=== PATIENT | female | born 1990 | race Caucasian/White ===

== ENCOUNTER 2020-03-09 05:43 | Inpatient (IN) ==
[2020-03-09] MEDS ORDERED: CITRIC ACID/SODIUM CITRATE 15 ML UDC PO SCH (06:00)
[2020-03-09] MEDS ORDERED: CEFAZOLIN 2,000 MG in SYRINGE 0 ML IV SCH (06:00)
[2020-03-09] MEDS ORDERED: LACTATED RINGER'S 1,000 ML IV SCH (06:00)
[2020-03-09 06:23] LABS: Basophils # (auto) 0.01 K/uL (0-0.2); Basophils % (auto) 0.1 %; Eosinophils # (auto) 0.12 K/uL (0-0.5); Eosinophils % (auto) 1.5 %; Hematocrit (blood only) 33.2 % (37-47); Hemoglobin 10.9 g/dL (12.0-16.0); Immature Granulocytes # (auto) 0.04 K/uL (0.00-0.02); Immature Granulocytes % (auto) 0.5 %; Lymphocytes # (auto) 1.69 K/uL (1.2-3.4); Lymphocytes % (auto) 21.8 %; Mean Corpuscular Hemoglobin 30.7 pg (25-34); Mean Corpuscular Volume 93.5 fL (80-100); Mean Platelet Volume 10.3 fL (7.4-10.4); Monocytes # (auto) 0.57 K/uL (0.11-0.59); Monocytes % (auto) 7.4 %; Neutrophils # (auto) 5.32 K/uL (1.4-6.5); Neutrophils % (auto) 68.7 %; Platelet Count 208 K/uL (130-400); RDW Coefficient of Variation 14.2 % (11.5-14.5); RDW Standard Deviation 48.8 fL (36.4-46.3); Red Blood Count 3.55 M/uL (4.2-5.4); White Blood Count 7.75 K/uL (4.8-10.8)
[2020-03-09 06:28] LABS: Mean Corpuscular Hgb Conc 32.8 g/dL (32-36)
[2020-03-09] MEDS ORDERED: MoRPHine SULFATE PF 1 MG/ML 10 ML AMP/VIAL ONE (06:48)
[2020-03-09] MEDS ORDERED: fentaNYL citrate 100 MCG/2 ML VIAL ONE ×2 (06:48→21:42)
[2020-03-09] MEDS ORDERED: OXYTOCIN 10 UNITS/ML VIAL ONE (06:48)
[2020-03-09] MEDS ORDERED: NALOXONE HCL 0.08 MG in SYRINGE 1.8 ML IV PRN (07:05)
[2020-03-09] MEDS ORDERED: ONDANSETRON INJ 2 MG/ML 2 ML VIAL IV PRN ×2 (07:05→21:55)
[2020-03-09] MEDS ORDERED: MoRPHine SULFATE 2 MG/ML CARP IV PRN (07:05)
[2020-03-09] MEDS ORDERED: MoRPHine SULFATE PF 1 MG/ML 10 ML AMP/VIAL INT SPINAL ONE (07:05)
[2020-03-09] MEDS ORDERED: LACTATED RINGER'S 500 ML IV PRN (07:05)
[2020-03-09] MEDS ORDERED: KETOROLAC 30 MG/ML VIAL IV PRN (07:05)
[2020-03-09] MEDS ORDERED: NALOXONE HCL 0.4 MG/1 ML VIAL/CARP IV PRN ×2 (07:05→21:55)
[2020-03-09] MEDS ORDERED: NALOXONE HCL 1 MG in SODIUM CHLORIDE 0.9% 1000ML 1,000 ML IV PRN ×2 (07:05→21:55)
[2020-03-09] MEDS ORDERED: PROMETHAZINE HCL 25 MG in SODIUM CHLORIDE 0.9% 50 ML IV PRN ×2 (07:05→21:55)
[2020-03-09] MEDS ORDERED: ePHEDrine sulfate 50 MG/ML AMP IV PRN ×2 (07:05→21:55)
[2020-03-09] MEDS ORDERED: DiphenhydrAMINE HCL 50 MG/ML VIAL IV PRN ×2 (07:05→21:55)
--- NOTE | 2020-03-09 07:06 | Anesthesiology Consultation ---
Date of Service March 09, 2020 Assessment & Plan ASA ASA2 Proposed Anesthesia Anesthesia Type: Spinal Risk / Benefits Reviewed With: PT / POA / Parent / Guardian, Accepts Plan and Informed Consent Obtained History Surgery Operation Date: 03/09/20 07:30 Proposed Procedures p Section in LD - Osman Julian MD Height/Weight Height: 5 ft 10 in Weight: 93.894 kg Allergies Allergy/AdvReac Type Severity Reaction Status Date / Time ERYTHROMYCIN Allergy Unknown Unknown Uncoded 03/09/20 05:57 Medications Home Medications Medication Instructions Recorded Confirmed Last Taken vit no.061-axin-[id number] 1 tab PO DAILY 03/09/20 03/09/20 03/08/20 [ Vitamin] NPO Date Last Intake of Fluids: 03/08/20 Time Last Intake of Fluids: 23:00 Date Last Intake of Solids: 03/08/20 Time Last Intake of Solids: 18:00 Past Medical History Medical History Cardiac murmur HX OF CHILD GERD (gastroesophageal reflux disease) NO MEDS Migraine Exercise / Class Metabolic Activity II 4-5 Yardwork/Stairs/Walk up hill Past Family History Family History Grandfather (Paternal) Diabetes Past Surgical History Surgical History [place] teeth extracted Past Anesthesia History No Hx of Anesthesia Complications and No Family Hx of Anesthesia Complications History of PONV No Hx of PONV and No Hx of Motion Sickness Social History Smoking Status: Never smoker Do You Dip or Chew Tobacco: No Hx Alcohol Use: No Hx Substance Use: No substance use type: does not use Review of Systems denies fever/cough/ colds/ chest pain/ SOB/ ARABELLA Constitutional: no fever and no chills Respiratory: no cough and no dyspnea denies ARABELLA Cardiovascular: no chest pain and no dyspnea on exertion Physical Exam Vital Signs Last Vital Signs Temp 36.9 C 03/09/20 05:59 Pulse 100 H 03/09/20 05:48 Resp 18 03/09/20 05:59 BP 117/81 03/09/20 05:48 ENMT Mouth: no TMJ abnormality and no dentition abnormality Thyromental Distance: > or= 3.5 Finger Breadths Mallampati Class: II Neck neck extension not limited Respiratory normal respiratory effort; no respiratory distress Auscultation: lungs clear to auscultation bilaterally Cardiovascular Rate/Rhythm: regular rate and regular rhythm Neurologic moves all extremities Psychiatric Orientation: alert and oriented x 3 Testing Laboratory Results 03/09/20 06:06
[2020-03-09] MEDS ORDERED: SODIUM CHLORIDE 0.9% 1000ML 1,000 ML IV SCH (07:15)
[2020-03-09] MEDS ORDERED: NO NARCOTICS OR SEDATIVES SCH (07:15)
[2020-03-09] MEDS: LACTATED RINGER'S 1,000 ML IV PRN ×3 (07:30→21:51)
[2020-03-09] MEDS ORDERED: OXYTOCIN 30 UNITS/500 ML BAG IV PRN ×2 (08:36→10:06)
--- NOTE | 2020-03-09 08:36 | Obstetrical Progress Note ---
Date of Service March 09, 2020 Assessment & Plan Admission and Anticipated Discharge Date Admission Date: March 09, 2020 Subjective Pt was initially scheduled for c/sec due to breech fetus Sono this Am shows baby is cephalic C/sec is therefore cancelled Will start induction pt is agreeable VE; ft/thick /post Munguia bulb placed in cervix with 30 cc saline and starting Pitocin Results & Data ([facility]) Vital Signs (Past 12 Hours) Vital Signs Temp Pulse Resp BP 03/09/20 08:04 36.3 C L 81 20 111/72 03/09/20 05:59 36.9 C 18 03/09/20 05:48 100 H 117/81
[2020-03-09] MEDS ORDERED: Nursing to Pharmacy Communication SCH (09:15)
[2020-03-09] MEDS: BUTORPHANOL TARTRATE 1 MG/ML VIAL IV PRN ×2 (13:05→17:47)
[2020-03-09] MEDS ORDERED: BUPIVACAINE 0.25% 30 ML VIAL ONE (21:42)
[2020-03-09] MEDS ORDERED: ePHEDrine sulfate 50 MG/ML AMP ONE (21:42)
[2020-03-09] MEDS ORDERED: fentaNYL 2MCG/ML ROPIV 1.25MG/ML 100 ML BAG EPI ONE (21:43)
[2020-03-09] MEDS ORDERED: fentaNYL 2MCG/ML ROPIV 1.25MG/ML 100 ML BAG EPI PRN (21:55)
--- NOTE | 2020-03-09 23:07 | Obstetrical Progress Note ---
Date of Service March 09, 2020 Assessment & Plan Admission and Anticipated Discharge Date Admission Date: March 09, 2020 Subjective pt doing well Epidural analgesia in Place FHR; CAT1 Ctx 1-3 Pit; 20 MU VE; 4/50/-2 AROM- Clear IUPC Placed Results & Data ([facility]) Vital Signs (Past 12 Hours) Vital Signs Temp Pulse Resp BP Pulse Ox 03/09/20 23:00 79 135/80 90 03/09/20 22:59 79 99 03/09/20 22:54 68 129/74 95 03/09/20 22:49 70 126/74 96 03/09/20 22:46 70 133/78 03/09/20 22:44 91 H 96 03/09/20 22:40 71 18 128/77 94 03/09/20 22:39 73 95 03/09/20 22:35 18 03/09/20 22:34 74 131/80 96 03/09/20 22:32 76 126/79 94 03/09/20 22:30 78 18 127/81 03/09/20 22:29 79 96 03/09/20 22:28 71 122/78 03/09/20 22:25 66 15 127/78 03/09/20 22:24 80 92 03/09/20 22:23 81 201/80 H 03/09/20 22:20 76 137/89 03/09/20 22:19 82 98 03/09/20 22:14 91 H 100 03/09/20 22:11 101 H 92 03/09/20 22:09 80 99 03/09/20 22:04 70 99 03/09/20 22:00 18 03/09/20 21:59 74 97 03/09/20 21:30 71 18 126/74 03/09/20 21:00 18 03/09/20 20:29 69 139/83 03/09/20 19:30 65 18 123/72 03/09/20 19:08 36.7 C 03/09/20 18:30 66 120/73 03/09/20 17:29 72 20 125/81 03/09/20 16:30 69 18 112/70 03/09/20 15:29 36.8 C 73 20 121/74 03/09/20 14:41 65 116/75 03/09/20 14:05 20 03/09/20 13:40 82 20 118/59 L 03/09/20 11:34 36.4 C L 79 20 122/77
--- NOTE | 2020-03-09 23:17 | Obstetrical Progress Note ---
Date of Service March 09, 2020 Assessment & Plan Admission and Anticipated Discharge Date Admission Date: March 09, 2020 Subjective Pt doing well FHR; CAT! Ctx 1-3mins Pit; 20 MU VE; 2-3/50/-3 Pt unable to tolerate exam for AROM Plan D/C Pitocin for one hour Results & Data ([facility]) Vital Signs (Past 12 Hours) Vital Signs Temp Pulse Resp BP Pulse Ox 03/09/20 23:09 65 96 03/09/20 23:04 70 129/77 97 03/09/20 23:00 79 135/80 90 03/09/20 22:59 79 99 03/09/20 22:54 68 129/74 95 03/09/20 22:49 70 126/74 96 03/09/20 22:46 70 133/78 03/09/20 22:44 91 H 96 03/09/20 22:40 71 18 128/77 94 03/09/20 22:39 73 95 03/09/20 22:35 18 03/09/20 22:34 74 131/80 96 03/09/20 22:32 76 126/79 94 03/09/20 22:30 78 18 127/81 03/09/20 22:29 79 96 03/09/20 22:28 71 122/78 03/09/20 22:25 66 15 127/78 03/09/20 22:24 80 92 03/09/20 22:23 81 201/80 H 03/09/20 22:20 76 137/89 03/09/20 22:19 82 98 03/09/20 22:14 91 H 100 03/09/20 22:11 101 H 92 03/09/20 22:09 80 99 03/09/20 22:04 70 99 03/09/20 22:00 18 03/09/20 21:59 74 97 03/09/20 21:30 71 18 126/74 03/09/20 21:00 18 03/09/20 20:29 69 139/83 03/09/20 19:30 65 18 123/72 03/09/20 19:08 36.7 C 03/09/20 18:30 66 120/73 03/09/20 17:29 72 20 125/81 03/09/20 16:30 69 18 112/70 03/09/20 15:29 36.8 C 73 20 121/74 03/09/20 14:41 65 116/75 03/09/20 14:05 20 03/09/20 13:40 82 20 118/59 L 03/09/20 11:34 36.4 C L 79 20 122/77
--- NOTE | 2020-03-09 23:19 | Obstetrical Progress Note ---
Date of Service March 09, 2020 Assessment & Plan Admission and Anticipated Discharge Date Admission Date: March 09, 2020 Subjective Last progress written in error Results & Data ([place]) Vital Signs (Past 12 Hours) Vital Signs Temp Pulse Resp BP Pulse Ox 03/09/20 23:14 70 96 03/09/20 23:09 65 96 03/09/20 23:04 70 129/77 97 03/09/20 23:00 79 18 135/80 90 03/09/20 22:59 79 99 03/09/20 22:54 68 129/74 95 03/09/20 22:49 70 126/74 96 03/09/20 22:46 70 133/78 03/09/20 22:44 91 H 96 03/09/20 22:40 71 18 128/77 94 03/09/20 22:39 73 95 03/09/20 22:35 18 03/09/20 22:34 74 131/80 96 03/09/20 22:32 76 126/79 94 03/09/20 22:30 78 18 127/81 03/09/20 22:29 79 96 03/09/20 22:28 71 122/78 03/09/20 22:25 66 15 127/78 03/09/20 22:24 80 92 03/09/20 22:23 81 201/80 H 03/09/20 22:20 76 137/89 03/09/20 22:19 82 98 03/09/20 22:14 91 H 100 03/09/20 22:11 101 H 92 03/09/20 22:09 80 99 03/09/20 22:04 70 99 03/09/20 22:00 18 03/09/20 21:59 74 97 03/09/20 21:30 71 18 126/74 03/09/20 21:00 18 03/09/20 20:29 69 139/83 03/09/20 19:30 65 18 123/72 03/09/20 19:08 36.7 C 03/09/20 18:30 66 120/73 03/09/20 17:29 72 20 125/81 03/09/20 16:30 69 18 112/70 03/09/20 15:29 36.8 C 73 20 121/74 03/09/20 14:41 65 116/75 09/29/20 14:05 20 03/09/20 13:40 82 20 118/59 L 03/09/20 11:34 36.4 C L 79 20 122/77
[2020-03-10] MEDS ORDERED: DC INTRASPINAL MORPHINE SCH (01:05)
[2020-03-10] MEDS: LACTATED RINGER'S 1,000 ML IV PRN (01:39)
[2020-03-10] MEDS ORDERED: Nursing to Pharmacy Communication SCH (03:45)
[2020-03-10] MEDS ORDERED: METHYLERGONOVINE MALEATE 0.2 MG/ML AMP IM ONE (04:36)
[2020-03-10] MEDS ORDERED: miSOPROStoL 200 MCG TAB PR ONE (04:36)
[2020-03-10] MEDS ORDERED: DIPHTHERIA/TETANUS/PERTUSSIS 0.5 ML SYR/VIAL IM ONE (04:36)
[2020-03-10] MEDS ORDERED: SUPERCREAM 0.870% 15 GM JAR EXT PRN (04:36)
[2020-03-10] MEDS ORDERED: ACETAMINOPHEN 325 MG TAB PO PRN (04:36)
[2020-03-10] MEDS ORDERED: bisacodyL 10 MG SUPP PR PRN (04:36)
[2020-03-10] MEDS ORDERED: HYDROCORTISONE ACETATE 25 MG SUPP PR PRN (04:36)
[2020-03-10] MEDS ORDERED: OXYTOCIN 30 UNITS/500 ML BAG IV PRN (04:36)
[2020-03-10] MEDS ORDERED: BENZOCAINE 20% AER SPR 82.5 GM CAN EXT PRN (04:36)
[2020-03-10 04:48] LABS: Base Excess Cord Venous Blood -2.3 mEq/L (-7.7-1.9); Cord Venous Blood HCO3 23 mmol/L (18.4-26.8); Cord Venous Blood PCO2 40 mmHg (30.4-57.2); Cord Venous Blood PO2 31 mmHg (14.1-43.3); Cord Venous Blood pH 7.37 (7.20-7.44)
--- NOTE | 2020-03-10 05:46 | Anesthesia Procedure Note ---
Date of Service March 10, 2020 Anesthesia Post Epidural Note Vital Signs Vital Signs: Temp Pulse Resp BP Pulse Ox 36.8 C 80 18 147/91 H 95 03/10/20 03:05 03/10/20 05:40 03/10/20 05:20 03/10/20 05:35 03/10/20 05:40 Pain Intensity Bilateral Lower Abdomen: Pain Intensity: 3 Notes Mental Status: alert / awake / arousable and participated in evaluation Patient Amnestic to Procedure: Yes Nausea / Vomiting: adequately controlled Pain: adequately controlled Airway Patency, RR, SpO2: stable & adequate BP & HR: stable & adequate Hydration State: stable & adequate Anesthetic Complications: no major complications apparent and Pt Satisfied with anesthetic care
--- NOTE | 2020-03-10 06:32 | Delivery Summary ---
DATE OF OPERATION: 03/09/2020 DELIVERY NOTE The patient delivered a live in left occiput anterior presentation with nuchal cord which was easily reduced. This was followed by the body cord. was delivered, placed on mother's abdomen. Delayed cord clamp was performed after 1 minute. Cord blood was obtained. was handed to the waiting pediatric team. Weight is pending. Apgars 8 and 9. Placenta spontaneously delivered. Inspection of the placenta shows normal grossly looking placenta. Placenta sent to pathology for pathological analysis. Inspection of the perineum shows a second-degree midline laceration with a right labial tear. The second-degree laceration was repaired with 2-0 Vicryl in layers. Rectal exam post repair showed good sphincter tone, no sutures are palpated in the rectum. A right labial tear was repaired with 3-0 Vicryl. All instruments were removed from the vagina including retractors, sponges, needles accounted for x2. Baby and mother are doing well. I attest to the content of the Intraoperative Record and any orders documented therein. Any exception s are noted below.
[2020-03-10] MEDS: DOCUSATE SODIUM 100 MG CAP PO SCH ×2 (08:49→21:51)
[2020-03-10] MEDS: IBUPROFEN 600 MG TAB PO PRN ×3 (08:49→18:30)
[2020-03-10] MEDS: FERROUS SULFATE 325 MG TAB PO SCH (08:49)
[2020-03-10] MEDS: PRENATAL VITAMIN 1 TAB PO SCH (08:49)
[2020-03-11] MEDS: IBUPROFEN 600 MG TAB PO PRN ×3 (00:13→20:43)
[2020-03-11 06:36] LABS: Hematocrit (blood only) 33.3 % (37-47); Hemoglobin 11.1 g/dL (12.0-16.0); Mean Corpuscular Hemoglobin 30.7 pg (25-34); Mean Corpuscular Hgb Conc 33.3 g/dL (32-36); Mean Corpuscular Volume 92.2 fL (80-100); Mean Platelet Volume 10.5 fL (7.4-10.4); Platelet Count 205 K/uL (130-400); RDW Coefficient of Variation 14.4 % (11.5-14.5); RDW Standard Deviation 48.3 fL (36.4-46.3); Red Blood Count 3.61 M/uL (4.2-5.4); White Blood Count 15.13 K/uL (4.8-10.8)
[2020-03-11] MEDS: PRENATAL VITAMIN 1 TAB PO SCH (08:15)
[2020-03-11] MEDS: FERROUS SULFATE 325 MG TAB PO SCH (08:15)
[2020-03-11] MEDS: DOCUSATE SODIUM 100 MG CAP PO SCH ×2 (08:15→20:43)
--- NOTE | 2020-03-11 10:02 | Obstetrical Progress Note ---
Date of Service March 11, 2020 Assessment & Plan Admission and Anticipated Discharge Date Admission Date: March 09, 2020 Subjective PPD#1 doing well passing gas out of bed ambulating well Physical Exam Constitutional: WD/WN, vitals as above comfortable abdomen soft non-tender no edema neg Dayana's tent d/c in AM Results & Data ([facility]) Vital Signs (Past 12 Hours) Vital Signs Temp Pulse Pulse Resp BP BP Pulse Ox 03/11/20 08:15 36.3 C L 71 18 113/73 95 03/11/20 04:40 36.9 C 85 17 110/67 96 03/11/20 00:10 36.5 C 63 16 114/75 96 Laboratory Results Laboratory Results - last 72 hr 03/09/20 03/09/20 03/10/20 06:06 06:06 04:36 WBC 7.75 RBC 3.55 L Hgb 10.9 L Hct 33.2 L MCV 93.5 MCH 30.7 MCHC 32.8 RDW Std Deviation 48.8 H RDW Coeff of Shanna 14.2 Plt Count 208 MPV 10.3 Immature Gran % (Auto) 0.5 Neut % (Auto) 68.7 Lymph % (Auto) 21.8 [place] % (Auto) 7.4 Eos % (Auto) 1.5 Baso % (Auto) 0.1 Neut # (Auto) 5.32 Lymph # (Auto) 1.69 [place] # (Auto) 0.57 Eos # (Auto) 0.12 Baso # (Auto) 0.01 Immature Gran # (Auto) 0.04 H Cord VBG pH 7.37 Cord VBG pCO2 40 Cord VBG pO2 31 Cord VBG HCO3 23 Cord VBG Base Excess -2.3 Cord VBG O2 Sat 65.0 Blood Gas Comments [place] Blood Type AB Positive Antibody Screen NEGATIVE 03/11/20 06:10 WBC 15.13 H RBC 3.61 L Hgb 11.1 L Hct 33.3 L MCV 92.2 MCH 30.7 MCHC 33.3 RDW Std Deviation 48.3 H RDW Coeff of Shanna 14.4 Plt Count 205 MPV 10.5 H Immature Gran % (Auto) Neut % (Auto) Lymph % (Auto) [place] % (Auto) Eos % (Auto) Baso % (Auto) Neut # (Auto) Lymph # (Auto) [place] # (Auto) Eos # (Auto) Baso # (Auto) Immature Gran # (Auto) Cord VBG pH Cord VBG pCO2 Cord VBG pO2 Cord VBG HCO3 Cord VBG Base Excess Cord VBG O2 Sat Blood Gas Comments Blood Type Antibody Screen
[2020-03-11] MEDS ORDERED: bisacodyL 5 MG TABEC PO SCH (20:00)
[2020-03-12 06:50] LABS: Hematocrit (blood only) 32.9 % (37-47); Hemoglobin 10.8 g/dL (12.0-16.0)
[2020-03-12] MEDS: PRENATAL VITAMIN 1 TAB PO SCH (07:51)
[2020-03-12] MEDS: FERROUS SULFATE 325 MG TAB PO SCH (07:51)
[2020-03-12] MEDS: IBUPROFEN 600 MG TAB PO PRN (07:51)
[2020-03-12] MEDS: DOCUSATE SODIUM 100 MG CAP PO SCH (07:51)
--- NOTE | 2020-03-12 09:46 | Obstetrical Progress Note ---
Date of Service March 12, 2020 Assessment & Plan (1) Normal course: PPD #2 pt doing well d/c home with instructions Subjective Ambulation: ambulating normally Voiding: no voiding problems Passing Gas:: Yes Diet Tolerance:: regular diet Lochia:: Small Feeding Type:: breast feeding Review of Systems All systems reviewed & are unremarkable except as noted in HPI & below Physical Exam Constitutional WD/WN, vitals as above well developed and well nourished Eyes PERRL, conjunctivae normal, anicteric sclerae Neck trachea midline, no thyromegaly Respiratory normal respiratory effort, lungs clear to auscultation Auscultation: no crackles, no rales and no wheezes Cardiovascular RRR, no murmur, no edema Gastrointestinal (Abdomen) normal bowel sounds, soft, nontender, no hepatosplenomegaly Uterus is below umbilicus Musculoskeletal no cyanosis or clubbing, extremities motor strength 5/5 Skin no rashes, warm and dry Neurologic patellar DTR's 2+ bilat, sensation intact Psychiatric A+Ox3, euthymic affect Genitourinary normal external appearance Results & Data ([facility]) Vital Signs (Past 12 Hours) Vital Signs Temp Pulse Resp BP Pulse Ox 03/12/20 08:00 36.5 C 69 18 122/78 98 03/12/20 00:30 36.8 C 71 18 130/81
== END 2020-03-12 12:45 | disposition home or self-care (01) | DRG 807 ==
LOC: 4S1 05:43 → EDSTATUS 07:30 → 4S2 03-10 08:12

== ENCOUNTER 2023-10-31 09:33 | Inpatient (IN) ==
[2023-10-31] MEDS ORDERED: LIDOCAINE 1% LOCAL 20 ML VIAL INFIL PRN (10:12)
--- NOTE | 2023-10-31 10:17 | History & Physical Report ---
Date of Service October 31, 2023 Assessment & Plan (1) 40 weeks gestation of : Plan: Admit, routine labs Discussed with patient about ambulating, versus epidural and augmentation versus augmentation and then epidural if patient desires. Discussed with a category 2 tracing would recommend proceeding with delivery at this time with augmentation. She is agreeable to start oxytocin at this time and will get an epidural when she desires Plan for AROM after Anticipate spontaneous vaginal delivery (2) AMA (advanced maternal age) multigravida 35+: (3) Antepartum anemia complicating in third trimester: Plan: Admission H&H pending History of Present Illness Chief Complaint: Ctx Primary Care Provider: NO PCP Patient is a pleasant 33-year-old -0-1-1 at 40 weeks and 2 days dated by last menstrual period consistent with 9-week ultrasound who presents to labor and delivery for worsening contractions. States contractions woke her up at 3 AM but then became significantly more painful at 8 AM. Contractions are every 3 to 6 minutes. Denies leaking of fluid or vaginal bleeding. Notes good movement. Denies any blurry vision, right upper quadrant or epigastric pain. Had a headache earlier this morning. No other complaints at this time States she is too uncomfortable to go home at this time, patient currently lives in [place] Allergies Allergy/AdvReac Type Severity Reaction Status Date / Time erythromycin base Allergy Unknown Verified 10/31/23 09:52 Home Medications Medication Instructions Recorded Confirmed Type vits no.124-ferrous fum 1 tab PO DAILY 03/09/20 10/31/23 History 27 mg iron-folic acid 800 mcg tablet ( Vitamin) ferrous sulfate 325 mg (65 mg 65 mg PO BID 10/31/23 History iron) tablet,delayed release Patient History Medical History Normal course GERD (gastroesophageal reflux disease) NO MEDS Migraine Cardiac murmur HX OF CHILD Surgical History [place] teeth extracted Family History Grandfather (Paternal) Diabetes Social History Smoking Status: Never smoker Second Hand Exposure: Yes ( KID DAD SMOKED); Do You Dip or Chew Tobacco: No; Hx Alcohol Use: No Hx Substance Use: No Preferred Language: Grenadian Communication Ability: Effective Music Video Producer Required: No Beliefs That Will Affect Care: None marital status: Current Living Situation: Spouse Other Information That Helps Us Care for You: No Feels Safe at Home: Yes Safety Concerns: Feels Safe At This Time Assistive Devices: None OB History -0-1-1 History of x 1, no complications [employer] History See record Review of Systems All systems reviewed & are unremarkable except as noted in HPI & below Physical Exam Constitutional: WD/WN, vitals as above Respiratory: normal respiratory effort, lungs clear to auscultation Cardiovascular: RRR, no murmur, no edema Gastrointestinal (Abdomen): normal bowel sounds, soft, nontender, no hepatosplenomegaly gravid EFW 3500g Genitourinary: External genitalia: Normal Cervix: 3-4/50/-3, mid/soft Results & Data Vital Signs (Past 12 Hours) Vital Signs Temp Pulse Resp BP 10/31/23 09:52 36.4 C L 61 20 125/77 Monitoring External Monitor heart tracing: Baseline 155, moderate variability, no accelerations, variable decelerations, Tocodynamometer Contractions every 2 to 6 minutes (2) AMA (advanced maternal age) multigravida 35+ Trimester: third trimester Qualified Code(s): O09.523 - Supervision of elderly multigravida, third trimester
[2023-10-31] MEDS: LACTATED RINGER'S 1,000 ML IV PRN (10:24)
[2023-10-31 10:53] LABS: Hematocrit (blood only) 37.9 % (37.0-47.0); Hemoglobin 13.1 g/dl (12.0-16.0); Mean Corpuscular Hemoglobin 30.8 pg (25.0-34.0); Mean Corpuscular Hgb Conc 34.6 g/dL (32.0-36.0); Mean Corpuscular Volume 89.2 fL (80.0-100.0); Mean Platelet Volume 10.5 fL (9.4-12.4); Platelet Count 201 K/uL (130-400); RDW Coefficient of Variation 13.6 % (11.5-14.5); RDW Standard Deviation 44.5 fL (36.4-46.3); Red Blood Count 4.25 M/uL (4.20-5.40); White Blood Count 10.83 K/ul (4.8-10.8)
[2023-10-31] MEDS ORDERED: fentANYL 2 MCG/ML BUPIVacaine 0.125%-NSS 100ML BAG EPI PRN (11:04)
[2023-10-31] MEDS ORDERED: ROPIVACAINE 0.5% PF 5 MG/ML 20 ML VIAL EPI PRN (11:04)
[2023-10-31] MEDS ORDERED: NALOXONE HCL 1 MG in SODIUM CHLORIDE 0.9% 1,000 ML IV PRN (11:04)
[2023-10-31] MEDS ORDERED: NALOXONE HCL 0.4 MG/1 ML VIAL/CARP IV PRN (11:04)
[2023-10-31] MEDS ORDERED: diphenhydrAMINE 50 MG/ML VIAL IV PRN (11:04)
[2023-10-31] MEDS ORDERED: ePHEDrine sulfate 50 MG/ML AMP IV PRN (11:04)
[2023-10-31] MEDS ORDERED: fentaNYL citrate PF 100 MCG/2 ML VIAL EPI PRN (11:04)
[2023-10-31] MEDS ORDERED: LIDOCAINE 2% MPF LOCAL 5 ML VIAL EPI PRN (11:04)
[2023-10-31] MEDS ORDERED: NALBUPHINE HCL 5 MG in SYRINGE 0 ML IV PRN (11:04)
--- NOTE | 2023-10-31 11:04 | Anesthesiology Consultation ---
Date of Service October 31, 2023 Assessment & Plan (1) Encounter for pre-operative examination: Chart Review Chart Review: Patient NOT seen in Pre Admission Testing and Acceptable Risk for Labor Epidural Consults Requested none History Height/Weight Height: 5 ft 10 in Weight: 89.811 kg Allergies Allergy/AdvReac Type Severity Reaction Status Date / Time erythromycin base Allergy Unknown Verified 10/31/23 09:52 Medications Home Medications Medication Instructions Recorded Confirmed Last Taken vits no.124-ferrous fum 1 tab PO DAILY 03/09/20 10/31/23 10/30/23 08:00 27 mg iron-folic acid 800 mcg tablet ( Vitamin) ferrous sulfate 325 mg (65 mg 65 mg PO BID 10/31/23 10/30/23 21:00 iron) tablet,delayed release Active Medications Generic Name Dose Route Start Last Admin Trade Name Freq PRN Reason Stop Dose Admin Lactated Ringer's 1,000 mls @ 125 mls/hr 10/31/23 10:12 10/31/23 10:56 Lr IV 11/02/23 10:11 125 mls/hr .Q8H PRN Infusion L&D Protocol Protocol Past Medical History Medical History Normal course GERD (gastroesophageal reflux disease) NO MEDS Migraine Cardiac murmur HX OF CHILD Past Family History Family History Grandfather (Paternal) Diabetes Past Surgical History Surgical History [place] teeth extracted Social History Smoking Status: Never smoker Do You Dip or Chew Tobacco: No Hx Alcohol Use: No Hx Substance Use: No substance use type: does not use Physical Exam Vital Signs Last Vital Signs Temp 97.5 F L 10/31/23 09:52 Pulse 61 10/31/23 09:52 Resp 20 10/31/23 09:52 BP 125/77 10/31/23 09:52 Testing Laboratory Results 10/31/23 10:19
[2023-10-31] MEDS: LIDOCAINE 2%/EPINEPHRINE 1:200,000 20 ML PF ONE (11:23)
[2023-10-31] MEDS: BUPIVACAINE 0.25% PF 30 ML VIAL ONE (11:23)
[2023-10-31] MEDS: fentANYL 2 MCG/ML BUPIVacaine 0.125%-NSS 100ML BAG ONE (11:26)
[2023-10-31] MEDS: fentaNYL citrate PF 100 MCG/2 ML VIAL ONE (11:28)
[2023-10-31] MEDS: SODIUM CHLORIDE 0.9% PF INJ 10 ML VIAL ONE (11:28)
[2023-10-31] MEDS: SODIUM CHLORIDE 0.9% PF INJ 10 ML VIAL EPI PRN (12:05)
[2023-10-31] MEDS: BUPIVACAINE 0.25% PF 30 ML VIAL EPI PRN (12:05)
--- NOTE | 2023-10-31 12:10 | Anesthesia Procedure Note ---
Date of Service October 31, 2023 Anesthesia Epidural Re-Dose Vital Signs Temp Pulse Resp BP Pulse Ox 97.5 F L 69 20 126/84 99 10/31/23 11:30 10/31/23 12:07 10/31/23 12:00 10/31/23 12:07 10/31/23 12:04 Notes Pain Intensity: 8 Dilatation (cm): 3.5 Effacement (%): 50 Called by nursing to evaluate epidural as the patient is having increased pain on right side, patient with diminished sensation to cold on right, more significant on left side. Catheter withdrawn 1 cm and redosed The epidural was re-dosed with the following medications (all medications via epidural route) after negative aspiration of the epidural catheter for CSF/HEME. 0.125% Bupivacaine (8ml) After Epidural Re-Dose Mental Status: alert / awake / arousable Pain: improving with treatment Airway Patency, RR, SpO2: stable & adequate BP & HR: stable & adequate
[2023-10-31] MEDS: OXYTOCIN 30 UNITS/NSS 30 UNITS/500 ML BAG IV PRN ×2 (12:57→16:53)
[2023-10-31] MEDS ORDERED: bisacodyL 10 MG SUPP PR PRN (16:26)
[2023-10-31] MEDS ORDERED: OXYTOCIN 30 UNITS/NSS 30 UNITS/500 ML BAG IV PRN (16:26)
[2023-10-31] MEDS ORDERED: ACETAMINOPHEN 325 MG TAB PO PRN (16:26)
[2023-10-31] MEDS ORDERED: HYDROCORTISONE ACETATE 25 MG SUPP PR PRN (16:26)
[2023-10-31] MEDS ORDERED: BENZOCAINE 20% SPRY 85 APPLN/85 GM CAN EXT PRN (16:26)
--- NOTE | 2023-10-31 16:32 | Delivery Summary ---
Vaginal Delivery Summary Date of Service October 31, 2023 Vaginal Delivery Summary Patient is a pleasant 33-year-old -0-1-1 at 40 weeks and 2 days who presented for worsening contractions. On admission she was found to be 3 to 4 cm dilated with a category 2 tracing. Recommended admission even though she was not in active labor. Patient offered oxytocin for augmentation versus epidural followed by oxytocin. She received an epidural for pain control and oxytocin was started. She remained unchanged, and then was checked and found to be 5 cm. When I went into the room on the next check she is found to have a bulging bag that was ruptured and she was complete with moderate amount of meconium stained fluid. Patient then vomited and fetus head was at the introitus and I was called for delivery. During this time heart rate had decreased to the 70s for 4 minutes with good recovery. This was noted due to the rapid descent of the head. Delivery Summary: Patient was placed in the dorsal lithotomy position. She was prepped and draped in the usual sterile fashion. Upon maternal pushing the head was delivered atraumatically followed by the anterior shoulders, posterior shoulders then the remainder of the infants body. She pushed twice. The infant was immediately placed on mother's abdomen, dried and stimulated. Delayed cord clamping for 60 seconds was performed. The infants mouth and nose were bulb suctioned by nursing staff. A female was delivered at 1617, weight pending with APGARS of 8 at 1 minute and 9 at 5 minutes. The infant was handed off to the awaiting nursing staff. Cord blood gases were not obtained. The placenta delivered intact with three vessel cord at 1620. Placenta was sent to pathology. Thirty units of Pitocin were added to the IV fluid and allowed to run freely. Uterine massage was performed until uterus was deemed firm. Upon inspection of the perineum, vagina and cervix were intact. Upon re-inspection the patient was hemostatic. Uterus again massaged and found to be firm. Needle and sponge counts were correct. Patient was stable and allowed to recover in L&D room. Infant was stable and remained in room with mother in the labor and delivery unit. QBL 50mls
[2023-10-31] MEDS: ePHEDrine sulfate 50 MG/ML AMP ONE (16:59)
[2023-10-31] MEDS: BUPIVACAINE 0.25% PF 30 ML VIAL EPI STA (16:59)
[2023-10-31] MEDS: fentaNYL citrate PF 100 MCG/2 ML VIAL EPI STA (17:00)
[2023-10-31] MEDS: DIPHTHER/TETAN/PERTUS Vaccine (Tdap, Adol/Adult) 0.5mL IM ONE (17:00)
[2023-10-31] MEDS: SODIUM CHLORIDE 0.9% PF INJ 10 ML VIAL EPI STA (17:00)
[2023-10-31] MEDS: LIDOCAINE 2%/EPINEPHRINE 1:200,000 20 ML PF EPI STA (17:00)
--- NOTE | 2023-10-31 18:01 | Anesthesia Procedure Note ---
Date of Service October 31, 2023 Anesthesia Post Epidural Note Vital Signs Vital Signs: Temp Pulse Resp BP Pulse Ox 36.8 C 77 20 130/72 97 10/31/23 16:00 10/31/23 17:57 10/31/23 17:12 10/31/23 17:57 10/31/23 16:19 Pain Intensity Bilateral Abdomen: Pain Intensity: 0 Notes Mental Status: alert / awake / arousable and participated in evaluation Nausea / Vomiting: adequately controlled Pain: adequately controlled Airway Patency, RR, SpO2: stable & adequate BP & HR: stable & adequate Hydration State: stable & adequate Neuraxial Anesthesia: was administered and sensory block resolved Anesthetic Complications: no major complications apparent and Pt Satisfied with anesthetic care Epidural: Removed without complications and With tip intact
[2023-10-31] MEDS: IBUPROFEN 600 MG TAB PO PRN (21:09)
[2023-10-31] MEDS: DOCUSATE SODIUM 100 MG CAP PO SCH (21:09)
--- OUTSIDE RECORDS SUMMARY | 2023-11-01 05:43 | External Medical Summary | Summary of Care ---
Author Name Unknown Organization [facility] Address [address] [facility] [place] [address] Phone [phone] Care Team Providers Care Distillation Operator Name Role Phone Santa Goodson Primary Care Provider Reason for Visit * Reason Comments Non Stress Test Encounter Details Date Type Department Care Team (Late st Contact Info) Description 10/30/2023 1:00 PM EDT Office Visit Gynecology/Obstetric s [facility] [address] [facility] [place] [address] Marcie Almanzar CRNP [address] [place] [address] [place], Non Stress Tests [facility] [address] [place] [address] Decreased movements in third trimester, single or unspecified fetus*; Antepartum multigravida of advanced maternal age; Normal in third trimester; Antepartum anemia complicating ; NST (non-stress test) nonreactive Allergies No known active allergiesdocumented as of this encounter (statuses as of 10/30/2023) Medications Medication Sig Dispensed Refills Start Date End Date Status Albuterol Sulfate HFA 108 (90 Base) MCG/ACT Inhalation Aerosol SolutionIndications:A cute sinusitis, recurrence not specified, unspecified location Inhale by mouth 2 Puffs every 6 hours as needed for Wheezing. 18 g 04/03/2022 Active 28-0.8 MG Oral Tablet Take by mouth. Active Iron-Vitamin C 65-125 MG Oral Tablet (Vitron C)Indications:Antepar lizy anemia complicating Take 1 Tablet by mouth in the morning and 1 Tablet before bedtime. 60 Tablet 3 08/08/2023 Active Breast Pump Dispense double electric breast pump. Dx:Z39.1 1 Each 08/10/2023 Active documented as of this encounter (statuses as of 10/30/2023) Active Problems Problem Noted Date Diagnosed Date Antepartum anemia complicating 024 Overview: Rx iron 28 wks Normal 04/18/2023 Antepartum multigravida of advanced maternal age 1003/23/2023 H/O dysplastic nevus 12/30/2020 Overview: Moderate-focally severely atypical nevus (L pretibial region 10/30), mildly atypical nevus (L lateral distal leg) Gastroesophageal reflux disease without esophagi tis 11/17/2015 Migraine headache with aura 01/11/2012 Dysmenorrhea 07/25/2004 Estimated Date of Delivery Comme nts Yes 10/29/2023 Based on last me nstrual period of 01/22/2023 (Exact Date) documented as of this encounter (statuses as of 10/30/2023) Resolved Problems Problem Noted Date Diagnosed Date Resolved Date presentation, breech 02/24/2020 1 06/19/2019 Supervision of normal first 09/09/2019 03/17/2020 Overview: Influenza vaccine administered 09/09/2019 with no complications. Maida Caicedo LPN 12/29/2019 Tdap Vaccine administered per clinic protocol. Pt given VIS(vaccine information sheet) Anette Werner RN Varicella without complication 09/29/2004 03/12/2017 COMMON MIGRAINE WITHOUT MENT ION OF INTRACTABLE MIGRAINE 10/18/2001 03/12/2017 documented as of this encounter (statuses as of 10/30/2023) Immunizations Name Administration Dates Next Due HPV Vaccine, 4-Valent 10/24/2010 Seasonal Influenza, PF, 6 M & above, IM , (FluLaval or Fluzone) 03/02/2020,09/09/2019 TDAP (age 10 and older)(Boostrix) 08/07/2023, TDAP (age 11 and older)(Adacel) 10/24/2010 documented as of this encounter Social History Tobacco Use Types Packs/Day Years Used Date Smoking Tobacco: Never Smokeless Tobacco: Never Alcohol Use Standard Drinks/Week Comments Not Currently 1.7 (1 standard drink = 0.6 oz p ure alcohol) social PHQ-2 Answer Date Recorded PHQ Adult Total Score 0 08/23/2023 Hunger Vital Sign Answer Date Recorded Within the past 12 months, y ou worried that your food would run out before you got the money to buy more. Never true 06/13/19 24 Within the past 12 months, t he food you bought just didn't last and you didn't have money to get more. Never true 06/13/2023 [place] Depression Scale Answer Date Recorded [place] Depression Scale Total 3 10/04/2023 The thought of harming myself has occurred to me . Never 10/04/2023 Estimated Date of Delivery Comme nts Yes 10/29/2023 Based on last me nstrual period of 01/22/2023 (Exact Date) Sex and Gender Information Value Date Recorded Sex Assigned at Female 10/10/2021 11:54 AM EDT Gender Identity Female 10/10/2021 11:54 AM EDT Sexual Orientation Straight 10/10/2021 11 :54 AM EDT Job Start Date Occupation Industry Not on file Not on file Not on file documented as of this encounter Last Filed Vital Signs Vital Sign Reading Time Taken Comments Blood Pressure 112/64 10/30/2023 1:06 PM EDT Pulse - - Temperature - - Respiratory Rate - - Oxygen Saturation - - Inhaled Oxygen Concentration - - Weight 89.9 kg (198 lb 3.2 oz) 10/30/2023 1:06 P M EDT Height - - Body Mass Index 28.44 10/04/2023 9:11 AM EDT documented in this encounter Progress Notes * Marcie Almanzar CRNP - 10/30/2023 1:31 PM EDT 40w1d Here for acute visit. Called this morning with decreased FM, contractions 8-10 minutes apart. States the movement she has felt seems to be "sluggish" and much less than usual. NST today initially nonreactive, no accelerations noted. Pt ate a big breakfast, a late morning snack, and is snacking and drinking during NST. Contractions not noted on NST. Denies bleeding or LOF. While waiting for BPP availability, NST became reactive. Decision was made to complete BPP. ASSESSMENT assessment with Non-stress Test completed on 10/30/2023 at 40.1weeks gestation for indication of decreased FM heart baseline: 125 bpm Variability: Moderate Decelerations: absent Accelerations: absent Contractions: None NST start time: 1251 NST stop time: 1358 NST strip reviewed, interpreted, and approved by OB provider, LYNETTE Lawrence . NST strip stored in clinic storage file documented in this encounter Nursing Notes * Chastity Tirado MED ASSIST - 10/30/2023 1:23 PM EDT 40w1d Denies vaginal bleeding/rom Decreased movements + contractions Pt presents in office for NST due to decreased movements. documented in this encounter Plan of Treatment Pending Results Name Type Priority Associated Diagnoses Date /Time US BPP W/O NON-STRESS TEST Medical Imaging Routine Decreased movements in third trimester, single or unspecified fetus NST (non-stress test) nonreactive 10/30/2023 2:10 PM EDT Scheduled Orders Name Type Priority Associated Diagnoses Orde r Schedule US BPP W/O NON-STRESS TEST Medical Imaging Routine Decreased movements in third trimester, single or unspecified fetus NST (non-stress test) nonreactive Expected: 10/30/2023 (Approximate), Expires: 11/29/2024 Health Maintenance Due Date Last Done Comments GARDASIL-HPV IMMUNIZATION SERIES (3 - 3-dose series) 12/08/2013 09/15/2013 (Refused), 10/24/2010 COVID-19 Vaccine ( season) 2023 Influenza Vaccine (FLU shot) (Season Ended) 2024 03/02/2020, 09/09/2019, 04/18/2018 Diabetes Screening 05/31/2024 05/31/2021 Depression Screening 08/22/2024 08/23/2023 Pap Smear 03/23/2026 03/23/2023, 11/0 02/2020, 03/12/2017, Additional history exists Cervical Cancer Screening 03/23/2028 HPV/Co-Test 03/23/2028 03/23/2023 DTaP,Tdap,and Td Vaccines (10 - Td or Tdap) 08/07/2033 08/07/2023, 12/29/2019, 10/24/2010, Additional history exists Hepatitis B Completed 03/11/1998, 10/09, 08/25/1997 MENINGOCOCCAL (MENACTRA/MENVEO) Aged Out No longer eligible based on patient's age to complete this topic Pneumococcal Vaccine: Pediatrics (0 to 5 Years) and At-Risk Patients (6 to 64 Years) Aged Out No longer eligible based on patient's age to complete this topic documented as of this encounter Medical Devices Not on filedocumented as of this encounter Visit Diagnoses Diagnosis Decreased movements in third trimester, single or unspecified fetus- Primary Antepartum multigravida of advanced maternal age Normal in third trimester Antepartum anemia complicating Anemia, antepartum NST (non-stress test) nonreactive Abnormal findings on screening documented in this encounter Care Teams Distillation Operator Relationship Specialty Start Date End Date Santa Goodson DO [address] [place] [address] PCP - General Family Medicine 01/02/17 documented as of this encounter
--- OUTSIDE RECORDS SUMMARY | 2023-11-01 05:43 | External Medical Summary | Summary of Care ---
Author Name Unknown Organization [facility] Address [address] [facility] [place] [address] Phone [phone] Care Team Providers Care Skoog Machine Operator Name Role Phone Jess Goodsonforrest LewShantell Primary Care Provider Encounter Details Date Type Department Care Team (Late st Contact Info) Description 10/31/2023 Telephone Gynecology/Obstetrics, [address] [place] [address] Osman Julian MD [address] [place] [address] Allergies No known active allergiesdocumented as of this encounter (statuses as of 10/31/2023) Medications Medication Sig Dispensed Refills Start Date [...] as of this encounter (statuses as of 10/31/2023) Active Problems Problem Noted Date Diagnosed Date [...] as of this encounter (statuses as of 10/31/2023) Resolved Problems Problem Noted Date Diagnosed Date [...] as of this encounter (statuses as of 10/31/2023) Immunizations Name Administration Dates Next Due DT - Diptheria/Tetanus (PEDS) 11/25/1999 DTaP Dipth/Tet/Acell Pertussis (Infanrix), Peds 12/20/1993,05/13/1990,01/16/1989, 989,1988 HIB PRP-OMP, 3 dose (Pedvax) 03/14/1990 HPV Vaccine, 4-Valent 10/24/2010 Hepatitis B, 0-19 yrs 03/11/1998,10/26/1997,08/09 MMR - Measles/Mumps/Rubella Vaccine 09/06/1998,1 06/16/1989 OPV - Polio Virus Vaccine (Oral) 994,05/13/1990,1988, 989 Seasonal Influenza, PF, 6 M & above, [...] money to get more. Never true 06/13/2023 [place] Depression Scale Answer Date Recorded [place] Depression Scale Total 3 10/04/2023 The thought [...] on file documented as of this encounter Miscellaneous Notes * Telephone Encounter - Stephenie Rooney LPN - 10/31/2023 8:[address] Schuster notified and she was letting L&D know. * Telephone Encounter - Anastasiya Perez RN - 10/31/2023 8:34 AM EDT T/C from pt reporting UCs every 4 min for the last hour. Started at about 3am. Stopping her in her tracks. Pt audibly breathing through a UC while on the phone. Denies LOF or vaginal bleeding. Reports +FM. Pt states she is planning to head in to L&D. Please review with customer relations specialist provider. Candido's pt. documented in this encounter Plan of Treatment Health Maintenance Due Date Last Done Comments [...] Not on filedocumented as of this encounter Care Teams Skoog Machine Operator Relationship Specialty Start Date End Date Santa Goodson DO [address] [place] [address] PCP - General Family Medicine 01/02/17 documented as of this encounter
--- OUTSIDE RECORDS SUMMARY | 2023-11-01 05:43 | External Medical Summary | Summary of Care ---
Author Name Unknown Organization [facility] Address [address] [facility] [place] [address] Phone [phone] Care Team Providers Care Preschool Special Education Teacher Name Role Phone Santa Goodson Primary Care Provider Reason for Visit * Reason Onset Date Comments Advice 10/30/[address] Taurus arnett Encounter Details Date Type Department Care Team (Late st Contact Info) Description 10/30/2023 Telephone Gynecology/Obstetrics [facility] [address] [place] [address] Randell Sprague MD [address] [place] [address] Advice (Rev with DR Sprague.) Allergies No known active allergiesdocumented as of [...] money to get more. Never true 06/13/2023 [place] Depression Scale Answer Date Recorded [place] Depression Scale Total 3 10/04/2023 The thought [...] encounter Miscellaneous Notes * Telephone Encounter - Imani Valdovinos RN - 10/30/2023 11:34 AM EDT Pt is feeling baby move. She just feels it is slow moving. She has only felt the baby move 3-4 times since talking to us. Ctx are still every 8-10 min. Advised for NST for decreased movement. Pt to come over. * Telephone Encounter - Ana Cho LPN - 10/30/2023 10:35 AM EDT Phone call from pt. Pt reports contractions this morning 8-10 minutes apart for the last 2 hours. Lasting 30-45 seconds. Rating 6/10. Pt denies any LOF or vaginal bleeding/spotting. Drinking 40 oz of water so far today. Has not felt movement yet this morning. Discuss [facility]- pt will do these in the meantime. Pt currently 40 weeks 1 day gestation. IOL scheduled 11/05 [place] cruz pt. Please discuss with production engineer provider. Ana Cho LPN 10/30/2023 10:39 AM documented in this encounter Plan of Treatment Upcoming Encounters Date Type Department Care Team (Late st Contact Info) Description 10/30/2023 1:00 PM EDT Office Visit Gynecology/Obstetrics [facility] [address] [place] [address] Marcie Almanzar CRNP [address] [place] [address] Melanie Cruz Stress Tests [facility] [address] [place] [address] Health Maintenance Due Date Last Done Comments [...] filedocumented as of this encounter Care Teams Preschool Special Education Teacher Relationship Specialty Start Date End Date Santa Goodson DO [address] [place] [address] PCP - General Family Medicine 01/02/17 documented as of this encounter
--- OUTSIDE RECORDS SUMMARY | 2023-11-01 05:43 | External Medical Summary | Summary of Care ---
Author Name Unknown Organization [facility] Address [address] [facility] [place] [address] Phone [phone] Care Team Providers Care Pre Coder Name Role Phone Santa Goodson Primary Care Provider Reason for Visit * Reason Comments Return Visit Encounter Details Date Type Department Care Team (Late st Contact Info) Description 10/25/2023 9:15 AM EDT Office Visit Gynecology/Obstetric s [facility] [address] [place] [address] Joyce Batres CRNP [address] [place] [address] Normal in third trimester*; Antepartum multigravida of advanced maternal age; Antepartum anemia complicating Allergies No known active allergiesdocumented as of this encounter (statuses as of 10/25/2023) Medications Medication Sig Dispensed Refills Start Date End Date Status Albuterol Sulfate HFA 108 (90 Base) MCG/ACT Inhalation Aerosol SolutionIndications:A cute sinusitis, recurrence not specified, unspecified location Inhale by mouth 2 Puffs every 6 hours as needed for Wheezing. 18 g 0 04/03/2022 Active 28-0.8 MG Oral Tablet Take by mouth. 0 Active Iron-Vitamin C 65-125 MG Oral Tablet (Vitron C)Indications:Antepar lizy anemia complicating Take 1 Tablet by mouth in the morning and 1 Tablet before bedtime. 60 Tablet 3 08/08/2023 Active Breast Pump Dispense double electric breast pump. Dx:Z39.1 1 Each 0 08/10/2023 Active documented as of this encounter (statuses as of 10/25/2023) Active Problems Problem Noted Date Diagnosed Date [...] as of this encounter (statuses as of 10/25/2023) Resolved Problems Problem Noted Date Diagnosed Date [...] as of this encounter (statuses as of 10/25/2023) Immunizations Name Administration Dates Next Due HPV [...] money to get more. Never true 06/13/2023 [place] Depression Scale Answer Date Recorded [place] Depression Scale Total 3 10/04/2023 The thought [...] Sign Reading Time Taken Comments Blood Pressure 118/70 10/25/2023 9:01 AM EDT Pulse - - Temperature - - Respiratory Rate - - Oxygen Saturation - - Inhaled Oxygen Concentration - - Weight 89.4 kg (197 lb) 10/25/2023 9:01 AM EDT Height - - Body Mass Index 28.27 10/04/2023 9:11 AM EDT documented in this encounter Progress Notes * Joyce Batres CRNP - 10/25/2023 9:08 AM EDT 39w3d Baby moving well. Increase in ctx over the last few days. No leaking/bleeding. Interested in cervical exam - 1-2 cm. Fuel Pilot Engineer Documentation Provider requested grain mixer. Name of grain mixer: Nancy Lan dates induction scheduled. 1 week return LYNETTE Damian documented in this encounter Plan of Treatment Health Maintenance Due Date Last Done Comments GARDASIL-HPV IMMUNIZATION SERIES (3 - 3-dose series) 12/08/2013 09/15/2013 (Refused), 10/24/2010 COVID-19 Vaccine ( season) 2023 Influenza Vaccine (FLU shot) (Season Ended) 2024 03/02/2020, 09/09/2019, 04/18/2018 Diabetes Screening 05/31/2024 05/31/2021 Depression Screening 08/22/2024 08/23/2023 Pap Smear 03/23/2026 03/23/2023, 1102/2020, 03/12/2017, Additional history exists Cervical Cancer Screening [...] as of this encounter Visit Diagnoses Diagnosis Normal in third trimester- Primary Antepartum multigravida of advanced maternal age Antepartum anemia complicating Anemia, antepartum documented in this encounter Care Teams Pre Coder Relationship Specialty Start Date End Date Santa Goodson DO [address] [place] [address] PCP - General Family Medicine 01/02/17 documented as of this encounter
--- OUTSIDE RECORDS SUMMARY | 2023-11-01 05:43 | External Medical Summary | Summary of Care ---
Author Name Unknown Organization [facility] Address [address] [facility] [place] [address] Phone [phone] Care Team Providers Care Pricing/Signage Team Member Name Role Phone Jess Goodsonforrest LewShantell Primary Care Provider Encounter Details Date Type Department Care Team (Late st Contact Info) Description 10/31/2023 Telephone Gynecology/Obstetrics, [address] [place] [address] Osman Julian MD [address] [place] [address] Allergies No known active allergiesdocumented as of [...] money to get more. Never true 06/13/2023 [place] Depression Scale Answer Date Recorded [place] Depression Scale Total 3 10/04/2023 The thought [...] head in to L&D. Please review with diamond cutter provider. Candido's pt. documented in this encounter [...] filedocumented as of this encounter Care Teams Pricing/Signage Team Member Relationship Specialty Start Date End Date Santa Goodson DO [address] [place] [address] PCP - General Family Medicine 01/02/17 documented as of this encounter
--- OUTSIDE RECORDS SUMMARY | 2023-11-01 05:44 | External Medical Summary | Summary of Care ---
Author Name Unknown Organization [facility] Address [address] [facility] [place] [address] Phone [phone] Care Team Providers Care Door To Door Selling Agent Name Role Phone Santa Goodson Primary Care Provider Reason for Visit * Reason Comments Return Visit Encounter Details Date Type Department Care Team (Late st Contact Info) Description 10/18/2023 9:15 AM EDT Office Visit Gynecology/Obstetric s [facility] [address] [place] [address] Joyce Batres CRNP [address] [facility] [place] [address] Normal in third trimester*; Antepartum multigravida of advanced maternal age; Antepartum anemia complicating Allergies No known active allergiesdocumented as of this encounter (statuses as of 10/18/2023) Medications Medication Sig Dispensed Refills Start Date [...] as of this encounter (statuses as of 10/18/2023) Active Problems Problem Noted Date Diagnosed Date [...] as of this encounter (statuses as of 10/18/2023) Resolved Problems Problem Noted Date Diagnosed Date [...] as of this encounter (statuses as of 10/18/2023) Immunizations Name Administration Dates Next Due HPV [...] money to get more. Never true 06/13/2023 [place] Depression Scale Answer Date Recorded [place] Depression Scale Total 3 10/04/2023 The thought [...] Sign Reading Time Taken Comments Blood Pressure 110/70 10/18/2023 8:45 AM EDT Pulse - - Temperature - - Respiratory Rate - - Oxygen Saturation - - Inhaled Oxygen Concentration - - Weight 88.5 kg (195 lb) 10/18/2023 8:45 AM EDT Height - - Body Mass Index 27.98 10/04/2023 9:11 AM EDT documented in this encounter Progress Notes * Joyce Batres CRNP - 10/18/2023 8:58 AM EDT 38w3d Baby is moving well. Some cramping, no regular ctx. No bleeding/LOF. Reviewed labor signs and FKC. Discussed induction if not delivered at 41+ weeks. 1 week return LYNETTE Damian documented in this encounter Plan of Treatment Upcoming Encounters Date Type Department Care Team (Late st Contact Info) Description 10/25/2023 9:15 AM EDT Office Visit Gynecology/Obstetrics [facility] [address] [place] [address] BackJoyce ritter CRNP [address] [place] [address] Health Maintenance Due Date Last Done Comments [...] antepartum documented in this encounter Care Teams Door To Door Selling Agent Relationship Specialty Start Date End Date Santa Goosdon DO [address] [place] [address] PCP - General Family Medicine 01/02/17 documented as of this encounter
--- OUTSIDE RECORDS SUMMARY | 2023-11-01 05:44 | External Medical Summary | Summary of Care ---
Author Name Unknown Organization [facility] Address [address] [facility] [place] [address] Phone [phone] Care Team Providers Care Director Of Cardiac Cath Lab Name Role Phone Santa Goodson Primary Care Provider Reason for Visit * Reason Comments Return Visit Encounter Details Date Type Department Care Team (Late st Contact Info) Description 09/20/2023 9:15 AM EDT Office Visit Gynecology/Obstetric s [facility] [address] [place] [address] Joyce Batres CRNP [address] [place] [address] Normal in third trimester*; Antepartum multigravida of advanced maternal age; Antepartum anemia complicating Allergies No known active allergiesdocumented as of this encounter (statuses as of 09/20/2023) Medications Medication Sig Dispensed Refills Start Date [...] as of this encounter (statuses as of 09/20/2023) Active Problems Problem Noted Date Diagnosed Date [...] as of this encounter (statuses as of 09/20/2023) Resolved Problems Problem Noted Date Diagnosed Date [...] as of this encounter (statuses as of 09/20/2023) Immunizations Name Administration Dates Next Due HPV [...] money to get more. Never true 06/13/2023 [place] Depression Scale Answer Date Recorded [place] Depression Scale Total 7 08/23/2023 The thought of harming myself has occurred to me . Never 08/23/2023 Estimated Date of Delivery Comme nts Yes [...] Sign Reading Time Taken Comments Blood Pressure 110/64 09/20/2023 8:59 AM EDT Pulse - - Temperature - - Respiratory Rate - - Oxygen Saturation - - Inhaled Oxygen Concentration - - Weight 87.5 kg (193 lb) 09/20/2023 8:59 AM EDT Height - - Body Mass Index 27.69 09/06/2023 10:57 AM EDT documented in this encounter Progress Notes * Nancy Ivy LPN - 09/20/2023 8:58 AM EDT 34w3d Denies vaginal bleeding/rom + movement No new concerns Labor instructions given today * Joyce Batres CRNP - 09/20/2023 8:58 AM EDT 34w3d Good movement. No leaking, bleeding, regular ctx. No thoughts on control yet, not sure if done childbearing. Labor instructions provided. Reviewed FKC. Discussed GBS swab to be completed at next visit. 2 week return LYNETTE Damian documented in this encounter Plan of Treatment Upcoming Encounters Date Type Department Care Team (Late st Contact Info) Description 10/04/2023 9:15 AM EDT Office Visit Gynecology/Obstetrics [facility] [address] [place] [address] Tanisha Trinh PA-C [address] [place], [place] [address] [address] 10/11/2023 9:15 AM EDT Office Visit Gynecology/Obstetrics [facility] [address] [place] [address] Joyce Batres CRNP [address] [place] [address] 10/17/2023 10:20 AM EDT Office Visit Dermatology [address] [place] [address] Tanisha Harris PA-C [address] [place] [address] [place] [address] 10/18/2023 9:15 AM EDT Office Visit Gynecology/Obstetrics [facility] [address] [place] [address] Joyce Batres CRNP [address] [place] [address] 10/25/2023 9:15 AM EDT Office Visit Gynecology/Obstetrics [facility] [address] [place] [address] Joyce Batres CRNP [address] [place] [address] Health Maintenance Due Date Last Done Comments GARDASIL-HPV IMMUNIZATION SERIES (3 - 3-dose series) 12/08/2013 09/15/2013 (Refused), 10/24/2010 COVID-19 Vaccine ( season) 2023 Influenza Vaccine (FLU shot) (Season Ended) 2024 03/02/2020, 09/09/2019, 04/18/2018 Diabetes Screening 05/31/2024 05/31/2021 Depression Screening 08/22/2024 08/23/2023 Pap Smear 03/23/2026 03/23/2023, 02/2020, 03/12/2017, Additional history exists Cervical Cancer [...] antepartum documented in this encounter Care Teams Director Of Cardiac Cath Lab Relationship Specialty Start Date End Date Santa Goodson DO [address] [place] [address] PCP - General Family Medicine 01/02/17 documented as of this encounter
--- OUTSIDE RECORDS SUMMARY | 2023-11-01 05:44 | External Medical Summary | Summary of Care ---
Author Name Unknown Organization [facility] Address [address] [facility] [place] [address] Phone [phone] Care Team Providers Care Founder And President Name Role Phone Santa Goodson Primary Care Provider Reason for Visit * Reason Comments Return Visit Encounter Details Date Type Department Care Team (Late st Contact Info) Description 10/04/2023 9:15 AM EDT Office Visit Gynecology/Obstetric s [facility] [address] [facility] [place] [address] Tanisha Trinh PA-C [address] [facility] [place] [address] Normal in third trimester*; Antepartum anemia complicating ; Antepartum multigravida of advanced maternal age Allergies No known active allergiesdocumented as of this encounter (statuses as of 10/04/2023) Medications Medication Sig Dispensed Refills Start Date [...] as of this encounter (statuses as of 10/04/2023) Active Problems Problem Noted Date Diagnosed Date [...] as of this encounter (statuses as of 10/04/2023) Resolved Problems Problem Noted Date Diagnosed Date [...] as of this encounter (statuses as of 10/04/2023) Immunizations Name Administration Dates Next Due HPV [...] money to buy more. Never true 06/13/19 Within the past 12 months, t he food you bought just didn't last and you didn't have money to get more. Never true 06/13/2023 [place] Depression Scale Answer Date Recorded [place] Depression Scale Total 3 10/04/2023 The thought [...] Sign Reading Time Taken Comments Blood Pressure 116/72 10/04/2023 9:11 AM EDT Pulse - - Temperature - - Respiratory Rate - - Oxygen Saturation - - Inhaled Oxygen Concentration - - Weight 88 kg (194 lb) 10/04/2023 9:11 AM EDT Height 177.8 cm (5' 10") 10/04/2023 9:11 AM EDT Body Mass Index 27.84 10/04/2023 9:11 AM EDT documented in this encounter Progress Notes * Tainsha Trinh PA-C - 10/04/2023 9:24 AM EDT Massiel Luna is a 33 year old female here for her routine OB appointment at 36w3d Her Estimated Date of Delivery: 10/29/23 REVIEW OF SYSTEMS She affirms movement. Denies vaginal bleeding, LOF, contractions, N/V, new/worsening headaches, vision changes, chest pain, deep calf pain/swelling, RUQ pain. Od[place] Depression Scale Od[place] Depression Scale Total: 3 [place] suicide question and score: Score of 3 = Yes, quite often. Score of 2 = Sometimes. Score of 1 = Hardly ever The thought of harming myself has occurred to me: 0 PHYSICAL EXAM Filed Vitals: 10/04/23 0911 BP: 116/72 Weight: 88 kg (194 lb) Height: 1.778 m (5' 10") +FHT 150s Fundal height 36 cm GBS swab collected. Director Video Documentation Patient offered environment coordinator and accepted. Name of environment coordinator: Niesha Vazquez LPN. ASSESSMENT/PLAN Antepartum multigravida of advanced maternal age (Primary) Normal Antepartum anemia complicating - Patient taking PO iron BID. Supervision of - GBS swab collected today - labor precautions and kick counts reviewed RTO in 1 week Tanisha Trinh PA-C 10/04/2023 documented in this encounter Plan of Treatment Upcoming Encounters Date Type Department Care Team (Late st Contact Info) Description 10/11/2023 9:15 AM EDT Office Visit Gynecology/Obstetrics [facility] [address] [place] [address] Joyce Batres CRNP [address] [place] [address] 10/17/2023 10:20 AM EDT Office Visit Dermatology [address] [place] [address] Tanisha Harris PA-C [address] [place] [address] [place] [address] 10/18/2023 9:15 AM EDT Office Visit Gynecology/Obstetrics [facility] [address] [place] [address] Joyce Batres CRNP [address] [place] [address] 10/25/2023 9:15 AM EDT Office Visit Gynecology/Obstetrics [facility] [address] [place] [address] Joyce Batres CRNP [address] [place] [address] Pending Results Name Type Priority Associated Diagnoses Date /Time GROUP B STREP CULTURE/PCR Lab Routine Normal in third trimester 10/04/2023 9:45 AM EDT Health Maintenance Due Date Last Done Comments GARDASIL-HPV IMMUNIZATION SERIES (3 - 3-dose series) 12/08/2013 09/15/2013 (Refused), 10/24/2010 COVID-19 Vaccine ( season) 2023 Influenza Vaccine (FLU shot) (Season Ended) 2024 03/02/2020, 09/09/2019, 04/18/2018 Diabetes Screening 05/31/2024 05/31/2021 Depression Screening 08/22/2024 08/23/2023 Pap Smear 03/23/2026 03/23/2023, 11/02/2020, 03/12/2017, Additional history exists Cervical Cancer Screening [...] Diagnosis Normal in third trimester- Primary Antepartum anemia complicating Anemia, antepartum Antepartum multigravida of advanced maternal age documented in this encounter Care Teams Founder And President Relationship Specialty Start Date End Date Santa Goodson DO [address] [place] [address] PCP - General Family Medicine 01/02/17 documented as of this encounter
--- OUTSIDE RECORDS SUMMARY | 2023-11-01 05:44 | External Medical Summary | Summary of Care ---
Author Name Unknown Organization [facility] Address [address] [facility] [address] Phone [phone] Care Team Providers Care Upholstery Estimator Name Role Phone Santa Goodson Primary Care Provider Reason for Visit * Reason Comments Return Visit Encounter Details Date Type Department Care Team (Late st Contact Info) Description 10/11/2023 9:15 AM EDT Office Visit Gynecology/Obstetric s [facility] [address] [place] [address] Joyce Batres CRNP [address] [place] [address] Normal in third trimester*; Antepartum multigravida of advanced maternal age; Antepartum anemia complicating Allergies No known active allergiesdocumented as of this encounter (statuses as of 10/11/2023) Medications Medication Sig Dispensed Refills Start Date [...] as of this encounter (statuses as of 10/11/2023) Active Problems Problem Noted Date Diagnosed Date [...] as of this encounter (statuses as of 10/11/2023) Resolved Problems Problem Noted Date Diagnosed Date [...] as of this encounter (statuses as of 10/11/2023) Immunizations Name Administration Dates Next Due HPV [...] money to get more. Never true 06/13/2023 [place] Depression Scale Answer Date Recorded [place] Depression Scale Total 3 10/04/2023 The thought [...] Reading Time Taken Comments Blood Pressure 112/64 10/11/2023 9:01 AM EDT Pulse - - Temperature - - Respiratory Rate - - Oxygen Saturation - - Inhaled Oxygen Concentration - - Weight 88 kg (194 lb) 10/11/2023 9:01 AM EDT Height - - Body Mass Index 27.84 10/04/2023 9:11 AM EDT documented in this encounter Progress Notes * Joyce Batres CRNP - 10/11/2023 9:11 AM EDT 37w3d Baby is moving well. Some BH ctx last week, nothing regular. No bleeding/leaking. Aware of neg GBS.Return in 1 week. LYNETTE Damian * Nancy Ivy LPN - 10/11/2023 9:01 AM EDT 37w3d Denies vaginal bleeding/rom + movement No new concerns documented in this encounter Plan of Treatment Upcoming Encounters Date Type Department Care Team (Late st Contact Info) Description 10/18/2023 9:15 AM EDT Office Visit Gynecology/Obstetrics [facility] [address] [place] [address] Joyce Batres CRNP [address] [place] [address] 10/25/2023 9:15 AM EDT Office Visit Gynecology/Obstetrics [facility] [address] [place] [address] Joyce Batres CRNP [address] [place] [address] Health Maintenance Due Date Last Done Comments [...] antepartum documented in this encounter Care Teams Upholstery Estimator Relationship Specialty Start Date End Date Santa Goodson DO [address] [place] [address] PCP - General Family Medicine 01/02/17 documented as of this encounter
--- OUTSIDE RECORDS SUMMARY | 2023-11-01 05:44 | External Medical Summary ---
Author Name Unknown Address Unknown Organization K01:[facility] [place] [address] [facility] [address] Laboratory Report Ordering Provider Test Date Status FREDDYSARAY 10/04/2023 09:45:58 Final Observation Date Value Abnormality Reference (Units ) Status Streptococcus agalactiae DNA [Presence] in Specimen by ADRIANNA with probe detection 10/04/2023 09:45:58 Negative Negative Final No Group B Streptococcus det ected by culture-enhanced PCR (amplified probe).
The collection of vaginal/rectal swab specimen combinations (FDA approved specimen type) is optimal for the detection of Group B Streptococcus. Single source collection (vaginal only or rectal only) or alternate specimen sources may lead to false negative results. Performing Location [facility] [place] [address] [facility] [address]
--- OUTSIDE RECORDS SUMMARY | 2023-11-01 05:44 | External Medical Summary | Summary of Care ---
Author Name Unknown Organization [facility] Address [address] [facility] [place] [address] Phone [phone] Care Team Providers Care Under Cutting Machine Operator Name Role Phone Santa Goodson Primary Care Provider Reason for Visit * Reason Comments Return Visit Encounter Details Date Type Department Care Team (Late st Contact Info) Description 10/04/2023 9:15 AM EDT Office Visit Gynecology/Obstetric s [facility] 132 [facility] [place] [address] Tanisha Trinh PA-C [address] [facility] [place] [address] Normal in third trimester*; [...] money to get more. Never true 06/13/2023 [place] Depression Scale Answer Date Recorded [place] Depression Scale Total 3 10/04/2023 The thought [...] documented in this encounter Progress Notes * Tanisha Trinh PA-C - 10/04/2023 9:24 AM EDT Massiel Luna is a 33 year old female here for her routine OB appointment at 36w3d Her Estimated Date of Delivery: 10/29/23 REVIEW OF SYSTEMS She affirms movement. Denies vaginal bleeding, LOF, contractions, N/V, new/worsening headaches, vision changes, chest pain, deep calf pain/swelling, RUQ pain. [place] Depression Scale [place] Depression Scale Total: 3 [place] suicide question and score: Score of 3 = Yes, quite often. Score of 2 = Sometimes. Score of 1 = Hardly ever The thought of harming myself has occurred to me: 0 PHYSICAL EXAM Filed Vitals: 10/04/23 0911 BP: 116/72 Weight: 88 kg (194 lb) Height: 1.778 m (5' 10") +FHT 150s Fundal height 36 cm GBS swab collected. Service Aide Documentation Patient offered hides inspector and accepted. Name of hides inspector: Niesha Vazquez LPN. ASSESSMENT/PLAN Antepartum multigravida of [...] 10/11/2023 9:15 AM EDT Office Visit Gynecology/Obstetrics [facility] [address] [place] [address] Joyce Batres CRNP [address] [place] [address] 10/17/2023 10:20 AM EDT Office Visit Dermatology [address] [place] [address] Tanisha Harris PA-C [address] [place] [address] [place] [address] 10/18/2023 9:15 AM EDT Office Visit Gynecology/Obstetrics [facility] [address] [place] [address] Joyce Batres CRNP [address] [place] [address] 10/25/2023 9:15 AM EDT Office Visit Gynecology/Obstetrics [facility] [address] [place] [address] Joyce Batres CRNP [address] [place] [address] Pending Results Name Type Priority Associated Diagnoses [...] age documented in this encounter Care Teams Under Cutting Machine Operator Relationship Specialty Start Date End Date Santa Goodson DO [address] [place] [address] PCP - General Family Medicine 01/02/17 documented as of this encounter
--- OUTSIDE RECORDS SUMMARY | 2023-11-01 05:44 | External Medical Summary | Summary of Care ---
Author Name Unknown Organization [facility] Address [address] [facility] [place] [address] Phone [phone] Care Team Providers Care Brass Pourer Name Role Phone Santa Goodson Primary Care Provider Reason for Visit * Reason Comments Return Visit Encounter Details Date Type Department Care Team (Late st Contact Info) Description 09/06/2023 11:15 AM EDT Office Visit Gynecology/Obstetric s [facility] 132 [facility] [place] [address] Arely Jessica MD [address] [place] [address] 32 weeks gestation of *; Antepartum multigravida of advanced maternal age; Antepartum anemia complicating Allergies No known active allergiesdocumented as of this encounter (statuses as of 09/06/2023) Medications Medication Sig Dispensed Refills Start Date [...] as of this encounter (statuses as of 09/06/2023) Active Problems Problem Noted Date Diagnosed Date [...] as of this encounter (statuses as of 09/06/2023) Resolved Problems Problem Noted Date Diagnosed Date [...] as of this encounter (statuses as of 09/06/2023) Immunizations Name Administration Dates Next Due HPV [...] money to get more. Never true 06/13/2023 [place] Depression Scale Answer Date Recorded [place] Depression Scale Total 7 08/23/2023 The thought [...] Sign Reading Time Taken Comments Blood Pressure 112/68 09/06/2023 10:57 AM EDT Pulse - - Temperature - - Respiratory Rate - - Oxygen Saturation - - Inhaled Oxygen Concentration - - Weight 85.7 kg (189 lb) 09/06/2023 10:57 AM EDT Height 177.8 cm (5' 10") 09/06/2023 10:57 AM EDT Body Mass Index 27.12 09/06/2023 10:57 AM EDT documented in this encounter Progress Notes * Arely Jessica MD - 09/06/2023 11:28 AM EDT Massiel Luna is a 33 year old female here for her routine OB appointment at 32w3d. Patient offers no complaints. Her Estimated Date of Delivery: 10/29/23 REVIEW OF SYSTEMS: She affirms movement. Denies vaginal bleeding, LOF, regular contractions, N/V, headaches PHYSICAL EXAM: Filed Vitals: 09/06/23 1057 BP: 112/68 Weight: 85.7 kg (189 lb) Height: 1.778 m (5' 10") +FHT 144 bpm Fundal height 33 cm ASSESSMENT/PLAN: (O09.529) Antepartum multigravida of advanced maternal age Plan: Patient declined genetic testing. (O99.019) Antepartum anemia complicating Plan: (Z3A.32) 32 weeks gestation of (primary encounter diagnosis) Plan: - labor precautions and kick counts reviewed - RTO in 2 weeks Arely Jessica MD documented in this encounter Nursing Notes * Niesha Shelley LPN - 09/06/2023 11:13 AM EDT 32w3d Repeat cbc today Denies concerns. documented in this encounter Plan of Treatment Upcoming Encounters Date Type Department Care Team (Late st Contact Info) Description 09/20/2023 9:15 AM EDT [facility] [address] [place] [address] Joyce Batres CRNP [address] [place] [address] 10/04/2023 9:15 AM EDT [facility] [address] [place] [address] Tanisha Trinh PA-C [address] [place] [address] [place] [address] 10/11/2023 9:15 AM EDT [facility] [address] [place] [address] Joyce Batres CRNP [address] [place] [address] 10/17/2023 10:20 AM EDT Office Visit Dermatology [address] [place] [address] Tanisha Harris PA-C [address] [place] [address] [place] [address] 10/18/2023 9:15 AM EDT Office Visit Gynecology/Obstetrics [facility] [address] [place] [address] Joyce Batres CRNP [address] [place] [address] 10/25/2023 9:15 AM EDT Office Visit Gynecology/Obstetrics [facility] [address] [place] [address] Joyce Batres CRNP [address] [place] [address] Pending Results Name Type Priority Associated Diagnoses Date /Time CBC WITH WBC DIFFERENTIAL AND ANEMIA REFLEX WORKUP Lab Routine Antepartum multigravida of advanced maternal age 0309/06/2023 11:38 AM EDT Scheduled Orders Name Type Priority Associated Diagnoses Orde r Schedule CBC WITH WBC DIFFERENTIAL AND ANEMIA REFLEX WORKUP Lab Routine Antepartum anemia complicating Expected: 09/06/2023 (Approximate), Expires: 09/05/2024 Health Maintenance Due Date Last Done Comments GARDASIL-HPV IMMUNIZATION SERIES (3 - 3-dose series) 12/08/2013 09/15/2013 (Refused), 10/24/2010 COVID-19 Vaccine ( season) 2023 Influenza Vaccine (FLU shot) (#1) 2023 03/02/2020, 09/09/2019, 04/18/2018 Diabetes Screening 05/31/2024 05/31/2021 [...] as of this encounter Visit Diagnoses Diagnosis 32 weeks gestation of - Primary state, incidental Antepartum multigravida of advanced maternal age Antepartum anemia complicating Anemia, antepartum documented in this encounter Care Teams Brass Pourer Relationship Specialty Start Date End Date Santa Goodson DO [address] [place] [address] PCP - General Family Medicine 01/02/17 documented as of this encounter
--- OUTSIDE RECORDS SUMMARY | 2023-11-01 05:44 | External Medical Summary | Summary of Care ---
Author Name Unknown Organization [facility] Address [address] [facility] [place] [address] Phone [phone] Care Team Providers Care Line Prep Cook Name Role Phone Santa Goodson Shantell DO Primary Care Provider Reason for Visit * Reason Comments Outpatient Testing Encounter Details Date Type Department Care Team (Late st Contact Info) Description 09/06/2023 11:50 AM EDT Laboratory Laboratory, [facility] [address] [place] [address] [facility] [address] [place] [address] Antepartum multigravida of advanced maternal age Allergies [...] money to get more. Never true 06/13/2023 [place] Depression Scale Answer Date Recorded [place] Depression Scale Total 7 08/23/2023 The thought [...] on file documented as of this encounter Plan of Treatment Upcoming Encounters Date Type Department Care Team (Late st Contact Info) Description 09/20/2023 9:15 AM EDT Office Visit Gynecology/Obstetrics [facility] [address] [place] [address] Joyce Batres CRNP [address] [place] [address] 10/04/2023 9:15 AM EDT Office Visit Gynecology/Obstetrics [facility] [address] [place] [address] Tanisha Trinh PA-C [address] [place] [address] [place] [address] 10/11/2023 9:15 AM EDT Office Visit Gynecology/Obstetrics [facility] [address] [place] [address] Joyce Batres CRNP [address] [place] [address] 10/17/2023 10:20 AM EDT Office Visit Dermatology [address] [place] [address] Tanisha Harris PA-C [address] [place] [address] [place] [address] 10/18/2023 9:15 AM EDT Office Visit Gynecology/Obstetrics [facility] [address] [place] [address] Joyce Batres CRNP [address] [place] [address] 10/25/2023 9:15 AM EDT Office Visit Gynecology/Obstetrics [facility] [address] [place] [address] Joyce Batres CRNP [address] [place] [address] Pending Results Name Type Priority Associated Diagnoses Date /Time CBC WITH WBC DIFFERENTIAL AND ANEMIA REFLEX WORKUP Lab Routine Antepartum multigravida of advanced maternal age 0309/06/2023 11:38 AM EDT ANEMIA CBC Lab Routine Antepartum multigravida of advanced maternal age 0309/06/2023 11:38 AM EDT DIFFERENTIAL, AUTOMATED Lab Routine Antepartum multigravida of advanced maternal age 0309/06/2023 11:38 AM EDT ANEMIA REFLEX CHEMISTRY HOLD Lab Routine Antepartum multigravida of advanced maternal age 0309/06/2023 11:38 AM EDT Health Maintenance Due Date Last Done Comments GARDASIL-HPV IMMUNIZATION SERIES (3 - 3-dose series) 12/08/2013 09/15/2013 (Refused), 10/24/2010 COVID-19 Vaccine (24 season) 2023 Influenza Vaccine (FLU shot) (#1) [...] as of this encounter Visit Diagnoses Diagnosis Antepartum multigravida of advanced maternal age documented in this encounter Care Teams Line Prep Cook Relationship Specialty Start Date End Date Santa Goodson DO [address] [place] [address] PCP - General Family Medicine 01/02/17 documented as of this encounter
--- OUTSIDE RECORDS SUMMARY | 2023-11-01 05:45 | External Medical Summary | Summary of Care ---
Author Name Unknown Organization [facility] Address [address] [facility] [place] [address] Phone [phone] Care Team Providers Care Boat Outboard Engine Mechanic Name Role Phone Santa Goodson Primary Care Provider Reason for Visit * Reason Onset Date Comments Test Results 03/23/2023 Unexpected or In determinate Result Encounter Details Date Type Department Care Team (Late st Contact Info) Description 03/23/2023 Telephone Radiology [facility] [address] [facility] [address] Marcie Almanzar CRNP [facility] [place] [address] Test Results (Unexpected or Indeterminate ... Allergies No known active allergiesdocumented as of this encounter (statuses as of 06/22/2023) Medications Medication Sig Dispensed Refills Start Date End Date Status Albuterol Sulfate HFA 108 (90 Base) MCG/ACT Inhalation Aerosol SolutionIndications:Acu te sinusitis, recurrence not specified, unspecified location Inhale by mouth 2 Puffs every 6 hours as needed for Wheezing. 18 g 0 04/03/2022 Active 28-0.8 MG Oral Tablet Take by mouth. 0 Active documented as of this encounter (statuses as of 06/22/2023) Active Problems Problem Noted Date Diagnosed Date Normal 04/18/2023 Antepartum multigravida of advanced maternal [...] as of this encounter (statuses as of 06/22/2023) Resolved Problems Problem Noted Date Diagnosed Date [...] as of this encounter (statuses as of 06/22/2023) Immunizations Name Administration Dates Next Due HPV Vaccine, 4-Valent 10/24/2010 Seasonal Influenza, PF, 6 M & above, IM , (FluLaval or Fluzone) 03/02/2020,09/09/2019 TDAP (age 10 and older)(Boostrix) 12/29/2019 TDAP (age 11 and older)(Adacel) 10/24/2010 documented as of this encounter Social History Tobacco Use Types Packs/Day Years Used Date Smoking Tobacco: Never Smokeless Tobacco: Never Alcohol Use Standard Drinks/Week Comments Not Currently 1.7 (1 standard drink = 0.6 oz p ure alcohol) social PHQ-2 Answer Date Recorded PHQ Adult Total Score 0 12/15/2021 Hunger Vital Sign Answer Date Recorded Within the past 12 months, y ou worried that your food would run out before you got the money to buy more. Never true 06/13/19 24 Within the past 12 months, t he food you bought just didn't last and you didn't have money to get more. Never true 06/13/2023 [place] Depression Scale Answer Date Recorded [place] Depression Scale Total 3 03/23/2023 The thought of harming myself has occurred to me . Never 03/23/2023 Estimated Date of Delivery Comme nts Yes [...] Telephone Encounter - Stephenie Rooney LPN - 03/26/2023 12:42 PM EDT Pt notified and scheduled * Telephone Encounter - Marcie Almanzar CRNP - 03/26/2023 11:09 AM EDT Please make pt aware that radiologist is recommending to repeat u/s in a few weeks. She has a smallsubchorionic hemorrhage OR a gestational sac that is getting reabsorbed. None of this is overly concerning, but it is recommended to recheck this. Order placed, please help schedule. * Telephone Encounter - [place] Tracy OSA - 03/23/2023 7:11 PM EDT Hello- The radiologist discovered an unexpected or indeterminate finding on Massiel Luna ([id number]) and asks that you review the following report. Study Type: US PELVIS TRANS-VAGINAL OB Date of Study: 03/23/2023 IMPRESSION 1. Single live intrauterine gestation 9 weeks 0 days with BELA of 10/26/2023. 2. Tracking subchorionic hemorrhage extending to the left, versus resorbing 2nd empty gestational sac. Suggest follow-up in several weeks. Please respond to this encounter to acknowledge receipt of this message and take responsibility to ensure this report is reviewed. Thank you, ARABELLA Sierra Client Service Rep [facility] documented in this encounter Plan of Treatment Upcoming Encounters Date Type Department Care Team (Late st Contact Info) Description 07/10/2023 8:30 AM EST Office Visit [facility]necology[facility]st[facility] [address] [place] [address] Joyce Batres CRNP [address] [place] [address] 10/17/2023 10:20 AM EDT Office Visit Dermatology [address] [place] [address] Tanisha Harris PA-C [address] [place] [address] [place] [address] Health Maintenance Due Date Last Done Comments COVID-19 Vaccine (#1) 01/25/1989 GARDASIL-HPV IMMUNIZATION SERIES (3 - 3-dose series) 12/08/2013 09/15/2013 (Refused), 10/24/2010 Depression Screening 12/15/2022 12/15/2021 Influenza Vaccine (FLU shot) (#1) 2023 03/02/2020, 09/09/2019, 04/18/2018 Pap Smear 03/23/2026 03/23/2023, 11/02/2020, 03/12/2017, Additional history exists Cervical Cancer Screening 03/23/2028 HPV/Co-Test 03/23/2028 03/23/2023 DTaP,Tdap,and Td Vaccines (9 - Td or Tdap) 12/28/2029 12/29/2019, 10/24/2010, 11/25/1999, Additional history exists Hepatitis B Completed 03/11/1998, [...] Not on filedocumented as of this encounter Results * US PELVIS TRANS-VAGINAL OB (04/06/2023 1:45 PM EDT) Anatomical Region Laterality Modality Pelvis, Body Ultrasound 04/06/2023 2:01 PM EDT Impressions 04/06/2023 2:34 PM EDT IMPRESSION 1. Single live intrauterine gestation with normal interval growth. 2. The previously questioned subchorionic hemorrhage appears resolved. However, there is a new area subchorionic hemorrhage on the opposite side of the gestational sac measuring less than 10%. I have personally reviewed this examination and agree with the resident/fellow physician's interpretation. Narrative 04/06/2023 2:34 PM EDT EXAM US PELVIS TRANS-VAGINAL OB - 04/06/2023 1:45 pm HISTORY f/u dating u/s. subchorionic hemorrhage vs gestational sac COMPARISON Pelvic ultrasound 03/23/2023 TECHNIQUE Real time transabdominal sonographic imaging of the pelvis was performed. FINDINGS The previous study of 03/23/2023 estimated a date of delivery of 10/26/2023. Utilizing that date, the current gestational age is 11 weeks 0 days. CROWN RUMP LENGTH: 46.0 mm equivalent to 11w 3d. HEART RATE: 172 bpm MYOMETRIUM: Unremarkable. RIGHT OVARY: Measures 3.7 cm x 2.4 cm x 3.1 cm, 14.5 ml. Corpus luteum LEFT OVARY: Not seen MISCELLANEOUS: No significant free fluid. The previously questioned subchorionic hemorrhage along the left side of the gestational sac appears all. However, there is a new area of subchorionic hemorrhage measuring less than 10% of the gestational sac on the opposite side of the gestational sac compared to prior ultrasound. Procedure Note Kishor Foss MD - 04/06/2023 EXAM US PELVIS TRANS-VAGINAL OB - 04/06/2023 1:45 pm HISTORY f/u dating u/s. subchorionic hemorrhage vs gestational sac COMPARISON Pelvic ultrasound 03/23/2023 TECHNIQUE Real time transabdominal sonographic imaging of the pelvis wasperformed. FINDINGS The previous study of 03/23/2023 estimated a date of delivery of10/26/2023. Utilizing that date, the current gestational age is 11 weeks0 days. CROWN RUMP LENGTH: 46.0 mm equivalent to 11w 3d. HEART RATE: 172 bpm MYOMETRIUM: Unremarkable. RIGHT OVARY: Measures 3.7 cm x 2.4 cm x 3.1 cm, 14.5 ml. Corpus luteum LEFT OVARY: Not seen MISCELLANEOUS: No significant free fluid. The previously questionedsubchorionic hemorrhage along the left side of the gestational sac appearsall. However, there is a new area of subchorionic hemorrhage measuringless than 10% of the gestational sac on the opposite side of thegestational sac compared to prior ultrasound. IMPRESSION IMPRESSION 1. Single live intrauterine gestation with normal interval growth. 2. The previously questioned subchorionic hemorrhage appears resolved.However, there is a new area subchorionic hemorrhage on the opposite sideof the gestational sac measuring less than 10%. I have personally reviewed this examination and agree with the resident/fellow physician's interpretation. Marcie OJEDA RAD ULTRASOUND documented in this encounter Visit Diagnoses Diagnosis Subchorionic hemorrhage of placenta in first trimester, single or unspecified fetus- Primary Subchorionic hemorrhage of placenta in first trimester, single or unspecified fetus documented in this encounter Care Teams Boat Outboard Engine Mechanic Relationship Specialty Start Date End Date Santa Goodson DO [address] [place] [address] PCP - General Family Medicine 01/02/17 documented as of this encounter
--- OUTSIDE RECORDS SUMMARY | 2023-11-01 05:45 | External Medical Summary | Summary of Care ---
Author Name Unknown Organization [facility] Address [address] [facility] [place] [address] Phone [phone] Care Team Providers Care Freelance Graphic Designer Name Role Phone Santa Goodson Primary Care Provider Reason for Visit * Reason Comments Outpatient Testing Encounter Details Date Type Department Care Team (Late st Contact Info) Description 09/06/2023 10:50 AM EDT Laboratory Laboratory, [facility] [address] [place] [address] [facility] [address] [place] [address] Arrived Allergies No known active allergiesdocumented as of [...] money to get more. Never true 06/13/2023 [place] Depression Scale Answer Date Recorded [place] Depression Scale Total 7 08/23/2023 The thought [...] 09/20/2023 9:15 AM EDT [facility] [address] [address] Joyce Batres CRNP [address] [place] [address] 10/04/2023 9:15 AM EDT [facility] [address] [place] [address] Tanisha Trinh PA-C [address] [place] [address] [place] [address] 10/11/2023 9:15 AM EDT [facility] [address] [place] [address] Joyce Batres CRNP [address] [place] [address] 10/17/2023 10:20 AM EDT Office Visit Dermatology [address] [place] [address] Tanisha Harris PA-C [address] [place] [address] [place] [address] 10/18/2023 9:15 AM EDT Office Visit Gynecology/Obstetrics [facility] [address] [place] [address] Joyce Batres CRNP [address] [place] [address] 10/25/2023 9:15 AM EDT Office Visit Gynecology/Obstetrics [facility] [address] [place] [address] Joyce Batres CRNP [address] [place] [address] Health Maintenance Due Date Last Done Comments [...] filedocumented as of this encounter Care Teams Freelance Graphic Designer Relationship Specialty Start Date End Date Santa Goodson DO [address] [place] [address] PCP - General Family Medicine 01/02/17 documented as of this encounter
--- OUTSIDE RECORDS SUMMARY | 2023-11-01 05:45 | External Medical Summary ---
Author Name Unknown Address Unknown Organization [id number]:LABORATORY [facility] - [address] [place] [address] Laboratory Report Ordering Provider Test Date Status DIANA SOLOMON 09/06/2023 11:38:55 Final Observation Date Value Abnormality Reference (Units ) Status TSH 09/06/2023 11:38:55 2.59 0.27-4.20 (uIU/mL) Final Performing Location [facility] - [address] [place] [address]
--- OUTSIDE RECORDS SUMMARY | 2023-11-01 05:45 | External Medical Summary ---
Author Name Unknown Address Unknown Organization [id number]:[facility]ATORY [facility] [place] - [address] [place] [address] Laboratory Report Ordering Provider Test Date Status MENDEZMARY 08/07/2023 09:50:46 Final Observation Date Value Abnormality Reference (Units ) Status Vitamin B12 08/07/2023 09:50:46 033 436-1238 (pg/mL) Final Performing Location [facility] - [address] [place] [address]
--- OUTSIDE RECORDS SUMMARY | 2023-11-01 05:45 | External Medical Summary ---
Author Name Unknown Address Unknown Organization [id number]:[facility] [place] [address] [place] [address] Laboratory Report Ordering Provider Test Date Status NEHA,KOLADE 09/06/2023 11:38:55 Final Observation Date Value Abnormality Reference (Units ) Status WBC, Total 09/06/2023 11:38:55 7.72 4.00-10.8 0 (K/uL) Final RBC 09/06/2023 11:38:55 3.83 3.85-5.15 (M/uL) Final Hemoglobin 09/06/2023 11:38:55 12.0 12.0-15.3 (g/dL) Final Anemia reflex testing trigge rs on a HGB < 12.0 for Females and HGB < 13.0 for Males in accordance with the WHO Anemia Guidelines
Anemia reflex testing triggers on a HGB < 12.0 for Females and HGB < 13.0 for Males in accordance with the WHO Anemia Guidelines HCT 09/06/2023 11:38:55 36.7 36.0-45.2 (%) Final MCV 09/06/2023 11:38:55 95.8 81.5-97.5 (fL) Final MCH 09/06/2023 11:38:55 31.3 27.0-34.0 (pg) Final MCHC 09/06/2023 11:38:55 32.7 32.0-36.0 (g/dL) Final RDW 09/06/2023 11:38:55 14.0 11.5-15.5 (%) Final Platelets 09/06/2023 11:38:55 223 140-400 (K /uL) Final MPV 09/06/2023 11:38:55 10.6 6.6-11.1 ( fL) Final Nucleated erythrocytes/100 leukocytes [Ratio] in Blood by Automated count 09/06/2023 11:38:55 0 <=0 (/100 WBCs) Fi nal Performing Location [facility] - [address] [place] [address]
--- OUTSIDE RECORDS SUMMARY | 2023-11-01 05:45 | External Medical Summary ---
Author Name Unknown Address Unknown Organization K01:[facility]ORY [facility] - [address] [place] [address] Laboratory Report Ordering Provider Test Date Status MARY SIMMS 08/07/2023 09:50:46 Final Observation Date Value Abnormality Reference (Units ) Status Iron 08/07/2023 09:50:46 109 33-151 (ug/dL) Final Iron-binding capacity 08/07/2023 09:50:46 514 Above high normal 250-425 (ug/dL) Final Transferrin Sat % 08/07/2023 09:50:46 21 15-55 (%) Final Performing Location [facility] - [address] [place] [address]
--- OUTSIDE RECORDS SUMMARY | 2023-11-01 05:45 | External Medical Summary | Summary of Care ---
Author Name Unknown Organization [facility] Address [address] [facility] [place] [address] Phone [phone] Care Team Providers Care Wood Gouger Name Role Phone Santa Goodson Shantell Primary Care Provider Reason for Visit * Reason Comments Outpatient Testing Encounter Details Date Type Department Care Team (Late st Contact Info) Description 08/07/2023 8:30 AM EST Laboratory Laboratory, [facility] [address] [place] [id number] [facility] 132 [place] [address] Normal in second trimester Allergies No known active allergiesdocumented as of this encounter (statuses as of 08/07/2023) Medications Medication Sig Dispensed Refills Start Date End Date Status Albuterol Sulfate HFA 108 (90 Base) MCG/ACT Inhalation Aerosol SolutionIndications:Acu te sinusitis, recurrence not specified, unspecified location Inhale by mouth 2 Puffs every 6 hours as needed for Wheezing. 18 g 0 04/03/2022 Active 28-0.8 MG Oral Tablet Take by mouth. 0 Active documented as of this encounter (statuses as of 08/07/2023) Active Problems Problem Noted Date Diagnosed Date [...] as of this encounter (statuses as of 08/07/2023) Resolved Problems Problem Noted Date Diagnosed Date [...] as of this encounter (statuses as of 08/07/2023) Immunizations Name Administration Dates Next Due HPV [...] money to get more. Never true 06/13/2023 [place] Depression Scale Answer Date Recorded [place] Depression Scale Total 3 03/23/2023 The thought [...] Care Team (Late st Contact Info) Description 08/23/2023 9:00 AM EDT [facility] [address] [place] [address] Joyce Batres CRNP [address] [place] [address] 10/17/2023 10:20 AM EDT Office Visit Dermatology [address] [place] [address] Tanisha Harris PA-C [address] [place] [address] [place] [address] Pending Results Name Type Priority Associated Diagnoses Date /Time 50-G GESTATIONAL GLUCOSE, 1 HOUR Lab Routine Normal in second trimester 08/07/2023 9:50 AM EST CBC WITH WBC DIFFERENTIAL AND ANEMIA REFLEX WORKUP Lab Routine Normal in second trimester 08/07/2023 9:50 AM EST SYPHILIS ANTIBODY SCREEN WITH REFLEX TO RPR Lab Routine Normal in second trimester 08/07/2023 9:50 AM EST ANEMIA CBC Lab Routine Normal in second trimester 08/07/2023 9:50 AM EST DIFFERENTIAL, AUTOMATED Lab Routine Normal in second trimester 08/07/2023 9:50 AM EST ANEMIA REFLEX CHEMISTRY HOLD Lab Routine Normal in second trimester 08/07/2023 9:50 AM EST SYPHILIS ANTIBODY SCREEN Lab Routine Normal in second trimester 08/07/2023 9:50 AM EST Health Maintenance Due Date Last Done Comments GARDASIL-HPV IMMUNIZATION SERIES (3 - 3-dose series) 12/08/2013 09/15/2013 (Refused), 10/24/2010 Depression Screening 12/15/2022 12/15/2021 COVID-19 Vaccine ( season) 2023 Influenza Vaccine (FLU shot) (#1) 2023 03/02/2020, 09/09/2019, 04/18/2018 Diabetes Screening 05/31/2024 05/31/2021 Pap Smear 03/23/2026 03/23/2023, 1102/2020, 03/12/2017, Additional [...] this encounter Visit Diagnoses Diagnosis Normal in second trimester documented in this encounter Care Teams Wood Gouger Relationship Specialty Start Date End Date Santa Goodson DO [address] [place] [address] PCP - General Family Medicine 01/02/17 documented as of this encounter
--- OUTSIDE RECORDS SUMMARY | 2023-11-01 05:45 | External Medical Summary ---
Author Name Unknown Address Unknown Organization K01:[facility] - [address] [facility] [address] [place] [address] Laboratory Report Ordering Provider Test Date Status NEHAANTOINEADE 09/06/2023 11:38:55 Final Observation Date Value Abnormality Reference (Units ) Status SYNC LEUKOCYTES IN BLOOD BY AUTOMATED COUNT 09/06/2023 11:38:55 7.72 4.00-10.80 (K/uL) Final Segs 09/06/2023 11:38:55 74.0 40.0-75.0 (%) Final Lymphs % 09/06/2023 11:38:55 17.9 Below low normal 18.0-42.0 (%) Final Monos 09/06/2023 11:38:55 6.6 1.0-11.0 (%) Final Eosinophils 09/06/2023 11:38:55 0.9 0.0-6.0 (%) Final Basos 09/06/2023 11:38:55 0.1 0.0-2.0 (%) Final Immature Granulocyte, Percent 09/06/2023 11:38:55 0.5 0.0-2.0 (%) Final Absolute Segs 09/06/2023 11:38:55 5.71 1.80-7.70 (K/uL) Final Lymphs, absolute 09/06/2023 11:38:55 1.38 1.00-4.80 (K/ul) Final Monos, Abs 09/06/2023 11:38:55 0.51 0.00-1.10 (K/uL) Final Eos, Abs 09/06/2023 11:38:55 0.07 0.00-0.70 (K/uL) Final Basos, Abs 09/06/2023 11:38:55 0.01 0.00-0.20 (K/uL) Final Immature Granulocytes, Number 09/06/2023 11:38:55 0.04 0.00-0.20 (K/uL) Final Performing Location [facility] [place] [address] [facility] [address]
--- OUTSIDE RECORDS SUMMARY | 2023-11-01 05:45 | External Medical Summary ---
Author Name Unknown Address Unknown Organization K01:[facility] [address] [place] [address] Laboratory Report Ordering Provider Test Date Status MARY SIMMS 08/07/2023 09:50:46 Final Observation Date Value Abnormality Reference (Units ) Status Creatinine 08/07/2023 09:50:46 0.6 0.5-1.0 (mg/dL) Final Glomerular filtration rate/1.73 sq M.predicted [Volume Rate/Area] in Serum, Plasma or Blood by Creatinine-based formula (CKD-EPI) 08/07/2023 09:50:46 >90 >=60 (mL/min) Final eGFR is calculated based on the CKD-EPI 2020 equation Performing Location [facility] [place] [address] [place] [address]
--- OUTSIDE RECORDS SUMMARY | 2023-11-01 05:45 | External Medical Summary | Summary of Care ---
Author Name Unknown Organization [facility] Address [address] [facility] [place] [address] Phone [phone] Care Team Providers Care Commercial Pest Control Representative Name Role Phone Santa Goodson Primary Care Provider Reason for Visit * Reason Comments Return Visit Encounter Details Date Type Department Care Team (Late st Contact Info) Description 08/23/2023 9:00 AM EDT Office Visit Gynecology/Obstetric s [facility] [address] [place] [address] Joyce Batres CRNP [address] [place] [address] Normal in third trimester*; Antepartum multigravida of advanced maternal age; Antepartum anemia complicating Allergies No known active allergiesdocumented as of this encounter (statuses as of 08/23/2023) Medications Medication Sig Dispensed Refills Start Date [...] as of this encounter (statuses as of 08/23/2023) Active Problems Problem Noted Date Diagnosed Date [...] as of this encounter (statuses as of 08/23/2023) Resolved Problems Problem Noted Date Diagnosed Date [...] as of this encounter (statuses as of 08/23/2023) Immunizations Name Administration Dates Next Due HPV [...] money to get more. Never true 06/13/2023 [place] Depression Scale Answer Date Recorded [place] Depression Scale Total 7 08/23/2023 The thought [...] Sign Reading Time Taken Comments Blood Pressure 104/68 08/23/2023 8:57 AM EDT Pulse - - Temperature - - Respiratory Rate - - Oxygen Saturation - - Inhaled Oxygen Concentration - - Weight 85.5 kg (188 lb 6.4 oz) 08/23/2023 8:57 A M EDT Height - - Body Mass Index 27.03 08/07/2023 8:49 AM EST documented in this encounter Progress Notes * Joyce Batres CRNP - 08/23/2023 9:03 AM EDT 30w3d No concerns. Baby is active. Denies leaking/bleeding or ctx. Some cramping, intermittent. Nursing to send breast pump rx through [facility]. Tolerating iron, will recheck CBC at next visit. 2 week return [place]NET[place] Damian * Nancy Ivy LPN - 08/23/2023 8:58 AM EDT 30w3d Denies vaginal bleeding/rom + movement No new concerns documented in this encounter Plan of Treatment Upcoming Encounters Date Type Department Care Team (Late st Contact Info) Description 09/06/2023 11:15 AM EDT Office Visit Gynecology/Obstetrics [facility] [address] [place] [address] Arely Jessica MD [address] [place] [address] 09/20/2023 9:15 AM EDT Office Visit Gynecology/Obstetrics [facility] [address] [place] [address] Joyce Batres CRNP [address] [place] [address] 10/04/2023 9:15 AM EDT Office Visit Gynecology/Obst[facility] [address] [place] [address] Tanisha Trinh PA-C [address] [place] [address] 10/11/2023 9:15 AM EDT Office Visit Gynecology/Obstetrics [facility] [address] [place] [address] Joyce Batres CRNP [address] [place] [address] 10/17/2023 10:20 AM EDT Office Visit Dermatology [address] [place] [address] Tanisha Harris PA-C [address] [place] [address] [place] [address] 10/18/2023 9:15 AM EDT Office Visit Gynecology/Obstetrics [facility] [address] [place] [address] BackJoyce ritter CRNP [address] [place] [address] 10/25/2023 9:15 AM EDT Office Visit Gynecology/Obstetrics [facility] [address] [place] [address] Joyce Batres CRNP [address] [place] [address] Health Maintenance Due Date Last Done Comments GARDASIL-HPV IMMUNIZATION SERIES (3 - 3-dose series) 12/08/2013 09/15/2013 (Refused), 10/24/2010 Depression Screening 12/15/2022 12/15/2021 COVID-19 Vaccine ( season) 2023 Influenza Vaccine (FLU shot) (#1) 2023 03/02/2020, 09/09/2019, 04/18/2018 Diabetes Screening 05/31/2024 05/31/2021 Pap Smear 03/23/2026 03/23/2023, 11/0 02/2020, 03/12/2017, [...] antepartum documented in this encounter Care Teams Commercial Pest Control Representative Relationship Specialty Start Date End Date Santa Goodson DO [address] [place] [address] PCP - General Family Medicine 01/02/17 documented as of this encounter
--- OUTSIDE RECORDS SUMMARY | 2023-11-01 05:45 | External Medical Summary ---
Author Name Unknown Address Unknown Organization K01:LABORATORY [facility] [place] - [address] [place] [address] Laboratory Report Ordering Provider Test Date Status MARY SIMMS 08/07/2023 09:50:46 Final Observation Date Value Abnormality Reference (Units ) Status Folic Acid 08/07/2023 09:50:46 >20.0 >4.5 (ng/ mL) Final Performing Location [facility] - [address] [place] [address]
--- OUTSIDE RECORDS SUMMARY | 2023-11-01 05:45 | External Medical Summary | Summary of Care ---
Author Name Unknown Organization [facility] Address [address] [facility] [place] [place] [address] Phone [phone] Care Team Providers Care Senior Infrastructure Engineer Name Role Phone Santa Goodson Primary Care Provider Reason for Visit * Reason Comments Return Visit Encounter Details Date Type Department Care Team (Late st Contact Info) Description 07/10/2023 8:30 AM EST Office Visit Gynecology/Obstetric s Felix Raya [address] [place] [address] BackJoyce ritter CRNP [address] [facility] [place] [address] Normal in second trimester*; Antepartum multigravida of advanced maternal age Allergies No known active allergiesdocumented as of this encounter (statuses as of 07/10/2023) Medications Medication Sig Dispensed Refills Start Date End Date Status Albuterol Sulfate HFA 108 (90 Base) MCG/ACT Inhalation Aerosol SolutionIndications:Acu te sinusitis, recurrence not specified, unspecified location Inhale by mouth 2 Puffs every 6 hours as needed for Wheezing. 18 g 0 04/03/2022 Active 28-0.8 MG Oral Tablet Take by mouth. 0 Active documented as of this encounter (statuses as of 07/10/2023) Active Problems Problem Noted Date Diagnosed Date [...] as of this encounter (statuses as of 07/10/2023) Resolved Problems Problem Noted Date Diagnosed Date [...] as of this encounter (statuses as of 07/10/2023) Immunizations Name Administration Dates Next Due HPV [...] money to get more. Never true 06/13/2023 [place] Depression Scale Answer Date Recorded [place] Depression Scale Total 3 03/23/2023 The thought [...] Sign Reading Time Taken Comments Blood Pressure 102/68 07/10/2023 8:27 AM EST Pulse - - Temperature - - Respiratory Rate - - Oxygen Saturation - - Inhaled Oxygen Concentration - - Weight 80.7 kg (178 lb) 07/10/2023 8:27 AM EST Height 177.8 cm (5' 10") 07/10/2023 8:27 AM EST Body Mass Index 25.54 07/10/2023 8:27 AM EST documented in this encounter Patient Instructions * Patient Instructions* Joyce Batres CRNP - 07/10/2023 8:34 AM EST To prevent migraines, take daily (bpkq-brp-unwwugp): - 400 mg magnesium - 200 mg Co-Q-10 - 400 mg riboflavin (vitamin B2) documented in this encounter Progress Notes * Joyce Batres CRNP - 07/10/2023 8:32 AM EST 24w1d Daily HAs, has hx migraines. No vision changes, Tylenol not always helpful. Trying to drink more water, encouraged. Reviewed OTC daily supplements to help prevent CHAUHAN. Feeling baby move. Some mild cramping. No bleeding. Labs with next visit. LYNETTE Damian documented in this encounter Nursing Notes * Niesha Shelley LPN - 07/10/2023 8:32 AM EST 24w1d Daily headaches. documented in this encounter Plan of Treatment Upcoming Encounters Date Type Department Care Team (Late st Contact Info) Description 08/07/2023 8:30 AM EST Laboratory Laboratory, [facility] [address] [facility] [place] [id number] [facility] [address] [facility] [place] [address] 08/07/2023 9:00 AM EST Office Visit Gynecology/Obstetrics [facility] [address] [facility] [place] [address] Marcie Almanzar CRNP [address] [place] [address] 10/17/2023 10:20 AM EDT Office Visit Dermatology [address] [place] [address] Tanisha Harris PA-C [address] [place] [address] [place] [address] Scheduled Orders Name Type Priority Associated Diagnoses Orde r Schedule 50-G GESTATIONAL GLUCOSE, 1 HOUR Lab Routine Normal in second trimester Expected: 08/09/2023 (Approximate), Expires: 07/10/2024 CBC WITH WBC DIFFERENTIAL AND ANEMIA REFLEX WORKUP Lab Routine Normal in second trimester Expected: 08/09/2023 (Approximate), Expires: 07/10/2024 SYPHILIS ANTIBODY SCREEN WITH REFLEX TO RPR Lab Routine Normal in second trimester Expected: 08/09/2023 (Approximate), Expires: 07/10/2024 Health Maintenance Due Date Last Done Comments COVID-19 Vaccine (#1) 01/25/1989 GARDASIL-HPV IMMUNIZATION SERIES (3 - 3-dose series) 12/08/2013 09/15/2013 (Refused), 10/24/2010 Depression Screening 12/15/2022 12/15/2021 Influenza Vaccine (FLU shot) (#1) 2023 03/02/2020, 09/09/2019, 04/18/2018 Pap Smear 03/23/2026 03/23/2023, 1102/2020, 03/12/2017, Additional [...] encounter Visit Diagnoses Diagnosis Normal in second trimester- Primary Antepartum multigravida of advanced maternal age documented in this encounter Care Teams Senior Infrastructure Engineer Relationship Specialty Start Date End Date Santa Goodson DO [address] [place] [address] PCP - General Family Medicine 01/02/17 documented as of this encounter
--- OUTSIDE RECORDS SUMMARY | 2023-11-01 05:45 | External Medical Summary | Summary of Care ---
Author Name Unknown Organization [facility] Address [address] [facility] [place] [address] Phone [phone] Care Team Providers Care Finished Metal Repairer Name Role Phone Santa Goodson Primary Care Provider Reason for Visit * Reason Comments Return Visit Encounter Details Date Type Department Care Team (Late st Contact Info) Description 08/07/2023 9:00 AM EST Office Visit Gynecology/Obstetric s Felix Raya [address] [place] [address] Marcie Almanzar CRNP [address] [place] [address] Antepartum multigravida of advanced maternal age*; Need for fkcgjqoauh-bsjhdxo-rz rtussis (Tdap) vaccine Allergies No known active allergiesdocumented as of [...] money to get more. Never true 06/13/2023 [place] Depression Scale Answer Date Recorded [place] Depression Scale Total 3 03/23/2023 The thought [...] Sign Reading Time Taken Comments Blood Pressure 98/72 08/07/2023 8:49 AM EST Pulse - - Temperature - - Respiratory Rate - - Oxygen Saturation - - Inhaled Oxygen Concentration - - Weight 83 kg (183 lb) 08/07/2023 8:49 AM EST Height 177.8 cm (5' 10") 08/07/2023 8:49 AM EST Body Mass Index 26.26 08/07/2023 8:49 AM EST documented in this encounter Progress Notes * Marcie Almanzar CRNP - 08/07/2023 9:10 AM EST 28w1d Complaints: some pubic symphysis pain, suggested chiropractior. Feeling well otherwise. Good FM. No contractions, bleeding, or LOF. Glucola, TDAP today. LYNETTE Lawrence documented in this encounter Nursing Notes * Niesha Shelley LPN - 08/07/2023 9:02 AM EST 28w1d Completing labs Tdap today Denies concerns. Patient here for tdap injection. Patient doing well no complaints. Injection given IM as ordered. Patient tolerated well. Patient to follow up as directed. Patient instructed to call if any complications. Patient verbalized understanding of instructions given and her follow up appt for ROMA Injection site: Left Deltoid Medication Source: Dispensed stock medication documented in this encounter Plan of Treatment Upcoming Encounters Date Type Department Care Team (Late st Contact Info) Description 08/23/2023 9:00 AM EDT Office Visit Gynecology/Obstetrics Felix Raya [address] [place] [address] Joyce Batres CRNP [address] [place] [address] 10/17/2023 10:20 AM EDT Office Visit Dermatology [address] [place] [address] Tanisha Harris PA-C [address] [place] [address] [place] [address] Health Maintenance Due Date Last Done Comments GARDASIL-HPV IMMUNIZATION SERIES (3 - 3-dose series) 12/08/2013 09/15/2013 (Refused), 10/24/2010 Depression Screening 12/15/2022 12/15/2021 COVID-19 Vaccine ( season) 2023 Influenza Vaccine (FLU shot) (#1) 2023 03/02/2020, 09/09/2019, 04/18/2018 Diabetes Screening 05/31/2024 05/31/2021 Pap Smear 03/23/2026 03/23/2023, 11/02/2020, 03/12/2017, Additional [...] Diagnoses Diagnosis Antepartum multigravida of advanced maternal age- Primary Need for tdxmkbridp-qipysru-dzevfnpiv (Tdap) vaccine Need for prophylactic vaccination with combined nuvwrrqtlm-bjonmln-lbprxtfxw (DTP) vaccine documented in this encounter Care Teams Finished Metal Repairer Relationship Specialty Start Date End Date Santa Goodson DO [address] [place] [address] PCP - General Family Medicine 01/02/17 documented as of this encounter
--- OUTSIDE RECORDS SUMMARY | 2023-11-01 05:45 | External Medical Summary ---
Author Name Unknown Address Unknown Organization [id number]:[facility] - [address] [place] [address] Laboratory Report Ordering Provider Test Date Status RYLIE SIMMSROSY 08/07/2023 09:50:46 Final Observation Date Value Abnormality Reference (Units ) Status TSH 08/07/2023 09:50:46 2.72 0.27-4.20 (uIU/mL) Final Performing Location [facility] - [address] [place] [address]
--- OUTSIDE RECORDS SUMMARY | 2023-11-01 05:45 | External Medical Summary ---
Author Name Unknown Address Unknown Organization [facility] - [address] [place] [address] Laboratory Report Ordering Provider Test Date Status MENDEZBACKER 08/07/2023 09:50:46 Final Observation Date Value Abnormality Reference (Units ) Status SYNC LEUKOCYTES IN BLOOD BY AUTOMATED COUNT 08/07/2023 09:50:46 8.48 4.00-10.80 (K/uL) Final Segs 08/07/2023 09:50:46 70.9 40.0-75.0 (%) Final Lymphs % 08/07/2023 09:50:46 20.5 18.0-42.0 (%) Final Monos 08/07/2023 09:50:46 6.6 1.0-11.0 (%) Final Eosinophils 08/07/2023 09:50:46 1.3 0.0-6.0 (%) Final Basos 08/07/2023 09:50:46 0.2 0.0-2.0 (%) Final Immature Granulocyte, Percent 08/07/2023 09:50:46 0.5 0.0-2.0 (%) Final Absolute Segs 08/07/2023 09:50:46 6.01 1.80-7.70 (K/uL) Final Lymphs, absolute 08/07/2023 09:50:46 1.74 1.00-4.80 (K/ul) Final Monos, Abs 08/07/2023 09:50:46 0.56 0.00-1.10 (K/uL) Final Eos, Abs 08/07/2023 09:50:46 0.11 0.00-0.70 (K/uL) Final Basos, Abs 08/07/2023 09:50:46 0.02 0.00-0.20 (K/uL) Final Immature Granulocytes, Number 08/07/2023 09:50:46 0.04 0.00-0.20 (K/uL) Final Performing Location [facility] - [address] [place] [facility] [address]
--- OUTSIDE RECORDS SUMMARY | 2023-11-01 05:45 | External Medical Summary | Summary of Care ---
Author Name Unknown Organization [facility] Address [address] [facility] [place] [address] Phone [phone] Care Team Providers Care Financial Services Assistant Name Role Phone Santa Goodson Primary Care Provider Reason for Visit * Reason Comments Return Visit Encounter Details Date Type Department Care Team (Late st Contact Info) Description 06/14/2023 2:15 PM EST Office Visit Gynecology/Obstetric s Felix Raya [address] [place] [address] Marcie Almanzar CRNP [address] [facility] [place] [address] Antepartum multigravida of advanced maternal age*; Normal in second trimester Allergies No known active allergiesdocumented as of this encounter (statuses as of 06/14/2023) Medications Medication Sig Dispensed Refills Start Date End Date Status Albuterol Sulfate HFA 108 (90 Base) MCG/ACT Inhalation Aerosol SolutionIndications:Acu te sinusitis, recurrence not specified, unspecified location Inhale by mouth 2 Puffs every 6 hours as needed for Wheezing. 18 g 0 04/03/2022 Active 28-0.8 MG Oral Tablet Take by mouth. 0 Active documented as of this encounter (statuses as of 06/14/2023) Active Problems Problem Noted Date Diagnosed Date [...] as of this encounter (statuses as of 06/14/2023) Resolved Problems Problem Noted Date Diagnosed Date [...] as of this encounter (statuses as of 06/14/2023) Immunizations Name Administration Dates Next Due HPV [...] money to get more. Never true 06/13/2023 [place] Depression Scale Answer Date Recorded [place] Depression Scale Total 3 03/23/2023 The thought [...] Sign Reading Time Taken Comments Blood Pressure 114/68 06/14/2023 2:14 PM EST Pulse - - Temperature - - Respiratory Rate - - Oxygen Saturation - - Inhaled Oxygen Concentration - - Weight 79.4 kg (175 lb) 06/14/2023 2:14 PM EST Height 177.8 cm (5' 10") 06/14/2023 2:14 PM EST Body Mass Index 25.11 06/14/2023 2:14 PM EST documented in this encounter Progress Notes * Marcie Almanzar CRNP - 06/14/2023 2:30 PM EST 20w3d No concerns. Feeling well overall. +FM. No bleeding, no n/v. Anatomy u/s today, having a girl. +Cardiac activity seen on u/s. LYNETTE Lawrence documented in this encounter Nursing Notes * Marcia Almaguer LPN - 06/14/2023 2:02 PM EST 20w3d Pt had anatomy today documented in this encounter Plan of Treatment Upcoming Encounters Date Type Department Care Team (Late st Contact Info) Description 07/10/2023 8:30 AM EST Office Visit Gynecology/Obstetrics [facility] [address] [place] [address] Joyce Batres CRNP [address] [place] [address] 10/17/2023 10:20 AM EDT Office Visit Dermatology [address] [place] [address] Tanisha Harris PA-C [address] [place] [address] [place] [address] Health Maintenance Due Date Last Done Comments [...] Antepartum multigravida of advanced maternal age- Primary Normal in second trimester documented in this encounter Care Teams Financial Services Assistant Relationship Specialty Start Date End Date Santa Goodson DO [address] [place] [address] PCP - General Family Medicine 01/02/17 documented as of this encounter
--- OUTSIDE RECORDS SUMMARY | 2023-11-01 05:45 | External Medical Summary ---
Author Name Unknown Address Unknown Organization K01:[facility] - [facility] [address] [place] [address] Laboratory Report Ordering Provider Test Date Status MARY SIMMS 08/07/2023 09:50:46 Final Observation Date Value Abnormality Reference (Units ) Status WBC, Total 08/07/2023 09:50:46 8.48 4.00-10.8 0 (K/uL) Final RBC 08/07/2023 09:50:46 3.75 3.85-5.15 (M/uL) Final Hemoglobin 08/07/2023 09:50:46 11.6 Below low normal 12 .0-15.3 (g/dL) Final Anemia reflex testing trigge rs on a HGB < 12.0 for Females and HGB < 13.0 for Males in accordance with the WHO Anemia Guidelines
Anemia reflex testing triggers on a HGB < 12.0 for Females and HGB < 13.0 for Males in accordance with the WHO Anemia Guidelines HCT 08/07/2023 09:50:46 35.7 Below low normal 36. 0-45.2 (%) Final MCV 08/07/2023 09:50:46 95.2 81.5-97.5 (fL) Final MCH 08/07/2023 09:50:46 30.9 27.0-34.0 (pg) Final MCHC 08/07/2023 09:50:46 32.5 32.0-36.0 (g/dL) Final RDW 08/07/2023 09:50:46 12.8 11.5-15.5 (%) Final Platelets 08/07/2023 09:50:46 251 140-400 (K /uL) Final MPV 08/07/2023 09:50:46 10.5 6.6-11.1 ( fL) Final Nucleated erythrocytes/100 leukocytes [Ratio] in Blood by Automated count 08/07/2023 09:50:46 0 <=0 (/100 WBCs) Final Performing Location [facility] - [address] [facility] [address]
--- OUTSIDE RECORDS SUMMARY | 2023-11-01 05:45 | External Medical Summary ---
Author Name Unknown Address Unknown Organization K01:[facility] - [address] [place] [address] Laboratory Report Ordering Provider Test Date Status MARY SIMMS 08/07/2023 09:50:46 Final Observation Date Value Abnormality Reference (Units ) Status Retic, % (auto) 08/07/2023 09:50:46 2.27 Above high normal 0.80-1.90 (%) Final Reticulocytes, Absolute 08/07/2023 09:50:46 86.5 31.3-100.1 (K/uL) Final Reticulocyte fraction, immature 08/07/2023 09:50:46 21.9 Above high normal 2.5-20.6 (%) Final Reticulocyte HGB 08/07/2023 09:50:46 33.1 29.7-37.4 (pg) Final Performing Location [facility] - [address] [place] [address]
--- OUTSIDE RECORDS SUMMARY | 2023-11-01 05:46 | External Medical Summary | Summary of Care ---
Author Name Unknown Organization [facility] Address [address] [facility] [place] [address] Phone [phone] Care Team Providers Care Passenger Vessel Chef Name Role Phone Santa Goodson Primary Care Provider Reason for Visit * Reason Comments Return Visit Encounter Details Date Type Department Care Team (Late st Contact Info) Description 05/17/2023 9:00 AM EST Office Visit Gynecology/Obstetric s CandidoDanielraven Raya [address] [place] [address] Marcie Almanzar CRNP [address] [place] [address] Antepartum multigravida of advanced maternal age*; Normal in second trimester Allergies No known active allergiesdocumented as of this encounter (statuses as of 05/17/2023) Medications Medication Sig Dispensed Refills Start Date End Date Status Albuterol Sulfate HFA 108 (90 Base) MCG/ACT Inhalation Aerosol SolutionIndications:Acu te sinusitis, recurrence not specified, unspecified location Inhale by mouth 2 Puffs every 6 hours as needed for Wheezing. 18 g 0 04/03/2022 Active 28-0.8 MG Oral Tablet Take by mouth. 0 Active documented as of this encounter (statuses as of 05/17/2023) Active Problems Problem Noted Date Diagnosed Date [...] as of this encounter (statuses as of 05/17/2023) Resolved Problems Problem Noted Date Diagnosed Date [...] as of this encounter (statuses as of 05/17/2023) Immunizations Name Administration Dates Next Due HPV Vaccine, 4-Valent 10/24/2010 SEASONAL INFLUENZA, PF, 6 M & Above, IM , (FLULAVAL or FLUZONE) 03/02/2020,09/09/2019 TDAP (age 10 and older)(Boostrix) 12/29/2019 [...] the money to buy more. Never true 01/04/20 23 Within the past 12 months, t he food you bought just didn't last and you didn't have money to get more. Never true 01/03/2023 [place] Depression Scale Answer Date Recorded [place] Depression Scale Total 3 03/23/2023 The thought [...] Sign Reading Time Taken Comments Blood Pressure 104/60 05/17/2023 8:42 AM EST Pulse - - Temperature - - Respiratory Rate - - Oxygen Saturation - - Inhaled Oxygen Concentration - - Weight 74.8 kg (164 lb 12.8 oz) 05/17/2023 8:42 AM EST Height 177.8 cm (5' 10") 05/17/2023 8:42 AM EST Body Mass Index 23.65 05/17/2023 8:42 AM EST documented in this encounter Progress Notes * Marcie Almanzar CRNP - 05/17/2023 9:17 AM EST 16w3d Complaints: none Feeling well. Has not yet felt FM. No contractions, bleeding, or LOF. Anatomy u/s with next visit. LYNETTE Lawrence * Eboni Arriola LPN - 05/17/2023 8:48 AM EST 16w3d Pt denies any concerns. documented in this encounter Plan of Treatment Upcoming Encounters Date Type Department Care Team (Late st Contact Info) Description 06/14/2023 12:45 PM EST Imaging Radiology [address] [place] [address] 06/14/2023 2:15 PM EST Office Visit Gynecology/Obstetrics Felix Raya [address] [place] [address] Marcie Almanzar CRNP [address] [place] [address] 10/17/2023 10:20 AM EDT Office Visit Dermatology [address] [place] [address] Tanisha Harris PA-C [address] [place] [address] [place] [address] Scheduled Orders Name Type Priority Associated Diagnoses Orde r Schedule US PREG SINGLE/1ST GEST, 14 WEEKS OR LATER Medical Imaging Routine Antepartum multigravida of advanced maternal age Normal in second trimester Expected: 06/17/2023 (Approximate), Expires: 06/17/2024 Health Maintenance Due Date Last Done Comments [...] trimester documented in this encounter Care Teams Passenger Vessel Chef Relationship Specialty Start Date End Date Santa Goodson DO [address] [place] [address] PCP - General Family Medicine 01/02/17 documented as of this encounter
[2023-11-01 06:34] LABS: Hematocrit (blood only) 33.9 % (37.0-47.0); Hemoglobin 11.6 g/dl (12.0-16.0); Mean Corpuscular Hemoglobin 30.9 pg (25.0-34.0); Mean Corpuscular Hgb Conc 34.2 g/dL (32.0-36.0); Mean Corpuscular Volume 90.4 fL (80.0-100.0); Mean Platelet Volume 10.7 fL (9.4-12.4); Platelet Count 196 K/uL (130-400); RDW Coefficient of Variation 13.5 % (11.5-14.5); RDW Standard Deviation 44.8 fL (36.4-46.3); Red Blood Count 3.75 M/uL (4.20-5.40); White Blood Count 14.26 K/ul (4.8-10.8)
[2023-11-01] MEDS: PRENATAL VITAMIN 1 TAB PO SCH (09:03)
--- NOTE | 2023-11-01 10:14 | Obstetrical Progress Note ---
Date of Service November 01, 2023 Subjective Ambulation: ambulating normally Voiding: no voiding problems Passing Gas:: Yes Diet Tolerance:: regular diet Lochia:: Small Feeding Type:: breast feeding doing well. wants to go home tommorrow Physical Exam Constitutional WD/WN, vitals as above Gastrointestinal (Abdomen) Inspection/Auscultation: abdomen normal to inspection abdomen soft and non-tender. fundus firm below U Musculoskeletal Extremities: extremities normal to inspection Skin no rashes, warm and dry Neurologic patellar DTR's 2+ bilat, sensation intact Psychiatric A+Ox3, euthymic affect Results & Data Vital Signs (Past 12 Hours) Vital Signs Temp Pulse Resp BP Pulse Ox O2 Del Method 11/01/23 07:30 36.6 C 74 16 124/83 96 Room Air 11/01/23 04:50 36.7 C 77 18 112/70 95 Room Air 11/01/23 01:07 36.9 C 84 18 119/64 96 Room Air Laboratory Results Laboratory Results - last 48 hr 10/31/23 11/01/23 10:19 05:47 WBC 10.83 H 14.26 H RBC 4.25 3.75 L Hgb 13.1 11.6 L Hct 37.9 33.9 L MCV 89.2 90.4 MCH 30.8 30.9 MCHC 34.6 34.2 RDW Std Deviation 44.5 44.8 RDW Coeff of Shanna 13.6 13.5 Plt Count 201 196 MPV 10.5 10.7 RPR Nonreactive
[2023-11-01] MEDS: bisacodyL 5 MG TABEC PO SCH (19:31)
[2023-11-02 07:04] LABS: Basophils # (auto) 0.04 K/uL (0.00-0.20); Basophils % (auto) 0.4 %; Eosinophils # (auto) 0.15 K/uL (0.00-0.50); Eosinophils % (auto) 1.5 %; Hematocrit (blood only) 33.5 % (37.0-47.0); Hemoglobin 11.2 g/dl (12.0-16.0); Immature Granulocytes # (auto) 0.07 K/uL (0.01-0.20); Immature Granulocytes % (auto) 0.7 %; Lymphocytes # (auto) 1.89 K/uL (1.20-3.40); Lymphocytes % (auto) 18.8 %; Mean Corpuscular Hemoglobin 30.9 pg (25.0-34.0); Mean Corpuscular Hgb Conc 33.4 g/dL (32.0-36.0); Mean Corpuscular Volume 92.3 fL (80.0-100.0); Mean Platelet Volume 10.3 fL (9.4-12.4); Neutrophils # (auto) 7.29 K/uL (1.40-6.50); Neutrophils % (auto) 72.6 %; Platelet Count 187 K/uL (130-400); RDW Coefficient of Variation 13.6 % (11.5-14.5); RDW Standard Deviation 46.5 fL (36.4-46.3); Red Blood Count 3.63 M/uL (4.20-5.40); White Blood Count 10.04 K/ul (4.8-10.8)
--- NOTE | 2023-11-02 09:05 | Obstetrical Progress Note ---
Date of Service November 02, 2023 Assessment & Plan Admission and Anticipated Discharge Date Admission Date: October 31, 2023 Subjective Patient is seen and examined. She feels well, no complaints. Ambulating without dizziness Voiding without difficulty Tolerating regular diet with out N&V Bleeding is minimal No fever/ chills/ CP/ SOB/ N&V/ Leg pain Breast feeding without problems Vital Signs Temp Pulse Resp BP Pulse Ox O2 Del Method 11/01/23 22:55 37 C 60 19 118/74 94 Room Air Lab Results 10/31/23 11/01/23 11/02/23 Range/Units 10:19 05:47 06:12 WBC 10.83 H 14.26 H 10.04 (4.8-10.8) K/ul RBC 4.25 3.75 L 3.63 L (4.20-5.40) M/uL Hgb 13.1 11.6 L 11.2 L (12.0-16.0) g/dl Hct 37.9 33.9 L 33.5 L (37.0-47.0) % MCV 89.2 90.4 92.3 (80.0-100.0) fL MCH 30.8 30.9 30.9 (25.0-34.0) pg MCHC 34.6 34.2 33.4 (32.0-36.0) g/dL RDW Std Deviation 44.5 44.8 46.5 H (36.4-46.3) fL RDW Coeff of Shanna 13.6 13.5 13.6 (11.5-14.5) % Plt Count 201 196 187 (130-400) K/uL MPV 10.5 10.7 10.3 (9.4-12.4) fL Immature Gran % (Auto) 0.7 % Neut % (Auto) 72.6 % Lymph % (Auto) 18.8 % Rowan % (Auto) 6.0 % Eos % (Auto) 1.5 % Baso % (Auto) 0.4 % Neut # (Auto) 7.29 H (1.40-6.50) K/uL Lymph # (Auto) 1.89 (1.20-3.40) K/uL Rowan # (Auto) 0.60 H (0.11-0.59) K/uL Eos # (Auto) 0.15 (0.00-0.50) K/uL Baso # (Auto) 0.04 (0.00-0.20) K/uL Immature Gran # (Auto) 0.07 (0.01-0.20) K/uL RPR Nonreactive (Nonreactive) PE: General: Alert, orientedx3, NAD Abd: soft, NT, fundus firm, below Umbilicus Perineum intact, Lochia rubra minimal Ext; NT, no edema AP: 33 yo s/p , ppd# 2 VSS Afebrile doing well Continue routine care All questions were answered D/C home , f/u in office Results & Data Vital Signs (Past 12 Hours) Vital Signs Temp Pulse Resp BP Pulse Ox O2 Del Method 11/01/23 22:55 37 C 60 19 118/74 94 Room Air
== END 2023-11-02 13:49 | disposition home or self-care (01) | DRG 807 ==
LOC: OPB 09:33 → 4S1 09:47 → 4E2 20:07